=== PATIENT | female | born 1955 | race American Indian/Alaskan Native ===

== ENCOUNTER 2017-03-26 16:22 | Inpatient (IN) | payer OTHER ==
[2017-03-26 20:01] VITALS: BMI 44.6
--- NOTE | 2017-03-26 21:51 | CP.PCM.HP ---
History of Present Illness - History of Present Illness History of Present Illness: CC: S/P CVA HPI: 61 year old female admitted to acute rehab s/p CVA with residual R sided weakness, mild to mod dysarthria, PMH Hx CVA with residual L sided weakness, DM , HTN, HLD, Bipolar DO, was discharged from [facility] following acute CVA L stein radiata and basal ganglia in L pericallosal region. CT head and CTA were negative. Pt admitted for further rehab PT OT ST. HD STABLE NAD. ROS: per HPI, 12 systems reviewed and negative by me PMH: Hx CVA with residual L sided weakness, DM, HTN, HLD, Bipolar DO, PSH: DENIES FH: DENIES SH: TOBACCO: SINCE 14 7 cigarettes daily, denies ETOH AND IVDU MEDS: as below and reviewed ALLERGIES: NKDA EXAM: Vitals stable and reviewed GEN: WDWN, alert, cooperative HEENT: NCAT, PERRL, EOMI Neck: supple, no lymphadenopathy CARDIO: +S1S2, RRR, NO M/R/G LUNG: CTAB, NO W/R/R ABD: soft, NT, ND, no masses, no HSM EXT: no edema, pedal pulses Neuro: AAOx3, Strength equal, bilateral UE/LE Psych: normal mood, normal affect LABS REVIEWED in chart Allergies No Known Allergies Allergy (Verified 03/26/17 20:36) Height & Weight Height 5 ft 4.57 in Weight 264 lb 8.875 oz Start Date/Time Active Medications 03/26/17 20:40 Ondansetron [Zofran Inj] 4 mg IVP Q4 PRN 03/26/17 22:00 Atorvastatin [Lipitor] 40 mg PO HS Insulin Lispro [humALOG] See Protocol SC ACHS 03/27/17 07:30 MetFORMIN [glucOPHAGE] 1,000 mg PO ACBD SITagliptin [Januvia] 100 mg PO ACB 03/27/17 09:00 Aspirin [Ecotrin] 81 mg PO DAILY Cholecalciferol 400 Intl Units [Vitamin D 400 Intl Units Tab] 800 intlu PO DAILY Lisinopril [Zestril] 10 mg PO DAILY ASSESSMENT AND PLAN: 61 year old female admitted to acute rehab s/p CVA with residual R sided weakness, mild to mod dysarthria, PMH Hx CVA with residual L sided weakness, DM , HTN, HLD, Bipolar DO, was discharged from [facility] [place] following acute CVA - MRI + L stein radiata and basal ganglia in L pericallosal region. CT head and CTA were negative. Pt admitted for further rehab PT OT ST. HD STABLE NAD. S/P CVA with R sided weakness Hx CVA with L sided weakness MRI + L stein radiata and basal ganglia in L pericallosal region Dr. Cameron Neuro at [facility] [place] as well cont ASA 81 MG DAILY diet: heart healthy 2 gm NA mod carb mech soft solids, thin liquid with assist PT OT Physiatry Dr Arora DM cont metformin, januvia achs accuchecks low ISS HTN cont lisinopril HLD cont statin VTE ppx lovenox Present on Admission - Present on Admission Any Indicators Present on Admission: No Past Patient History - Past Medical History & Family History Past Medical History?: Yes - Past Social History Smoking Status: Heavy Smoker > 10 Cigarettes Daily - CARDIAC Hx Hypertension: Yes - PULMONARY Hx Respiratory Disorders: No - NEUROLOGICAL Hx Neurological Disorder: No - HEENT Hx HEENT Problems: No - RENAL Hx Chronic Kidney Disease: No - ENDOCRINE/METABOLIC Hx Diabetes Mellitus Type 2: Yes - HEMATOLOGICAL/ONCOLOGICAL Hx Blood Disorders: No - INTEGUMENTARY Hx Dermatological Problems: No - MUSCULOSKELETAL/RHEUMATOLOGICAL Hx Falls: Yes - GASTROINTESTINAL Hx Gastrointestinal Disorders: No - GENITOURINARY/GYNECOLOGICAL Hx Genitourinary Disorders: No - PSYCHIATRIC Hx Substance Use: No - SURGICAL HISTORY Hx Tubal Ligation: Yes (25 Yrs ago) - ANESTHESIA Hx Anesthesia: Yes Hx Anesthesia Reactions: No Hx Malignant Hyperthermia: No Meds Allergies/Adverse Reactions: Allergies Allergy/AdvReac Type Severity Reaction Status Date / Time No Known Allergies Allergy Verified 03/26/17 20:36 Results - Labs Labs: Laboratory Results - last 24 hr 03/26/17 21:05 POC Glucose (mg/dL) 134 H
[2017-03-26] MEDS: Insulin Lispro (humaLOG) 100 Units/ml Inj SC SCH (22:00)
[2017-03-27] MEDS ORDERED: Influenza Vaccine 18yr & older 0.5 ML/45 MCG SYR IM ONE ×2 (03:19→06:00)
[2017-03-27] MEDS ORDERED: Pneumococcal 23-Valent Vaccine IM ONE (06:00)
[2017-03-27] MEDS: Insulin Lispro (humaLOG) 100 Units/ml Inj SC SCH ×4 (06:30→21:55)
[2017-03-27] MEDS: Cholecalciferol 400 Intl Units Tab PO SCH (09:24)
[2017-03-27] MEDS: Enoxaparin 40 mg Syringe SC SCH (09:24)
[2017-03-27] MEDS: Pantoprazole 40 mg EC Tab PO SCH (10:28)
--- NOTE | 2017-03-27 20:15 | CP.PCM.CON ---
History of Present Illness - History of Present Illness History of Present Illness: 61 year patient admitted for acute inpatient rehab with diagnosis of CVA , problems with slurred speech and right sided weakness Review of Systems - Musculoskeletal Musculoskeletal: Abnormal Gait - Neurological Neurological: Abnormal Gait, Abnormal Speech, Lack of Coordination, Weakness Past Patient History - Past Medical History & Family History Past Medical History?: Yes - Past Social History Smoking Status: Light Smoker < 10 Cigarettes Daily - CARDIAC Hx Hypertension: Yes - PULMONARY Hx Respiratory Disorders: No - NEUROLOGICAL HX Cerebrovascular Accident: Yes - HEENT Hx HEENT Problems: No - RENAL Hx Chronic Kidney Disease: No - ENDOCRINE/METABOLIC Hx Diabetes Mellitus Type 2: Yes - HEMATOLOGICAL/ONCOLOGICAL Hx AIDS: No Hx Human Immunodeficiency Virus (HIV): No - INTEGUMENTARY Hx Dermatological Problems: No - MUSCULOSKELETAL/RHEUMATOLOGICAL Hx Falls: Yes - GASTROINTESTINAL Hx Gastrointestinal Disorders: No - GENITOURINARY/GYNECOLOGICAL Hx Genitourinary Disorders: No - PSYCHIATRIC Hx Bipolar Disorder: Yes - SURGICAL HISTORY Hx Tubal Ligation: Yes (25 Yrs ago) - ANESTHESIA Hx Anesthesia: Yes Hx Anesthesia Reactions: No Hx Malignant Hyperthermia: No Has any member of the family had a problem w/ anesthesia?: No Meds Allergies/Adverse Reactions: Allergies Allergy/AdvReac Type Severity Reaction Status Date / Time No Known Allergies Allergy Verified 03/26/17 20:36 - Medications Medications: Current Medications Acetaminophen (Tylenol 325mg Tab) 650 mg PO Q4 PRN PRN Reason: pain level 1-10 Aspirin (Ecotrin) 81 mg PO DAILY [facility] Last Admin: 03/27/17 09:23 Dose: 81 mg Atorvastatin Calcium (Lipitor) 40 mg PO HS [facility] Last Admin: 03/26/17 22:54 Dose: 40 mg Docusate Sodium (Colace) 100 mg PO BID [facility] Last Admin: 03/27/17 17:01 Dose: 100 mg Enoxaparin Sodium (Lovenox) 40 mg SC DAILY [facility] PRN Reason: Protocol Last Admin: 03/27/17 09:24 Dose: 40 mg Insulin Human Lispro (Humalog) 0 units SC ACHS [facility] PRN Reason: Protocol Last Admin: 03/27/17 17:00 Dose: 1 u Lisinopril (Zestril) 10 mg PO DAILY [facility] Last Admin: 03/27/17 09:23 Dose: 10 mg Metformin HCl (Glucophage) 1,000 mg PO ACBD [facility] Last Admin: 03/27/17 17:01 Dose: 1,000 mg Ondansetron HCl (Zofran Inj) 4 mg IVP Q4 PRN PRN Reason: Nausea/Vomiting Last Admin: 03/27/17 17:09 Dose: 4 mg Pantoprazole Sodium (Protonix Ec Tab) 40 mg PO DAILY [facility] Last Admin: 03/27/17 10:28 Dose: 40 mg Sitagliptin Phosphate (Januvia) 100 mg PO ACB [facility] Last Admin: 03/27/17 07:03 Dose: 100 mg Vitamin D (Vitamin D 400 Intl Units Tab) 800 intlu PO DAILY [facility] Last Admin: 03/27/17 09:24 Dose: 800 intlu Physical Exam - Head Exam Head Exam: ATRAUMATIC, NORMAL INSPECTION, NORMOCEPHALIC - Eye Exam Eye Exam: EOMI, Normal appearance Pupil Exam: NORMAL ACCOMODATION, PERRL - ENT Exam ENT Exam: Mucous Membranes Moist - Neck Exam Neck exam: Positive for: Normal Inspection - Respiratory Exam Respiratory Exam: NORMAL BREATHING PATTERN - Cardiovascular Exam Cardiovascular Exam: REGULAR RHYTHM - GI/Abdominal Exam GI & Abdominal Exam: Normal Bowel Sounds - Rectal Exam Rectal Exam: NORMAL INSPECTION - Exam External exam: NORMAL EXTERNAL EXAM - Extremities Exam Extremities exam: Positive for: normal inspection Additional comments: right sided weakness, and slurred speech - Psychiatric Exam Psychiatric exam: Normal Affect - Skin Skin Exam: Dry, Normal Color Results - Vital Signs Recent Vital Signs: Last Vital Signs Temp 97.7 F 03/27/17 10:00 Pulse 92 H 03/27/17 16:38 Resp 19 03/27/17 10:00 BP 140/79 03/27/17 10:00 Pulse Ox 95 03/27/17 10:00 - Labs Labs: Laboratory Results - last 24 hr 03/26/17 03/27/17 03/27/17 21:05 06:00 11:58 POC Glucose (mg/dL) 134 H 148 H 141 H 03/27/17 15:54 POC Glucose (mg/dL) 153 H Assessment & Plan - Assessment and Plan (Free Text) Assessment: patinet with problems of CVA, HTN and DM HIgh cholestrol. Plan for physical, occupational, rec and speech therapy rom, strengthening transfers and gait training
--- NOTE | 2017-03-27 20:23 | PCM.OPOC ---
Physiatry Overall Plan of Care - Overall Plan of Care Estimated Length of Stay in Weeks: 3 Rehab Impairment: Mobility, Gait, Cognition, Speech, Balance Etiologic Diagnosis: Cerebrovascular Accident Rehab/Medical Prognosis: Fair - Anticipated Interventions Physical Therapy:: Yes Occupational Therapy:: Yes Speech Therapy:: Yes Recreational Therapy:: Yes - Therapy Goals Bed Mobility: Independent Ambulation: Supervision Functional Positional Changes:: Independent - Functional Outcomes Functional Outcomes: good - Discharge Plan Identification of Barriers to Discharge: Home Situation Discharge Destination: Home
[2017-03-28] MEDS: Insulin Lispro (humaLOG) 100 Units/ml Inj SC SCH ×4 (06:39→22:00)
[2017-03-28] MEDS: Enoxaparin 40 mg Syringe SC SCH (09:31)
[2017-03-28] MEDS: Pantoprazole 40 mg EC Tab PO SCH (09:32)
[2017-03-28] MEDS: Cholecalciferol 400 Intl Units Tab PO SCH (09:32)
--- NOTE | 2017-03-28 10:55 | CP.PCM.PN ---
Subjective - Date & Time of Evaluation Date of Evaluation: 03/28/17 Time of Evaluation: 10:53 - Subjective Subjective: PATIENT SEEN AND EXAMINED FOR CVA DOING WELL TOLERATING PT WELL Objective - Vital Signs/Intake and Output Vital Signs (last 24 hours): Temp Pulse Resp BP Pulse Ox 97.8 F 83 22 153/82 H 98 03/28/17 08:31 03/28/17 09:33 03/28/17 08:31 03/28/17 09:33 03/28/17 08:31 - Medications Medications: Current Medications Acetaminophen (Tylenol 325mg Tab) 650 mg PO Q4 PRN PRN Reason: pain level 1-10 Aspirin (Ecotrin) 81 mg PO DAILY [facility] Last Admin: 03/28/17 09:32 Dose: 81 mg Atorvastatin Calcium (Lipitor) 40 mg PO HS [facility] Last Admin: 03/27/17 21:50 Dose: 40 mg Docusate Sodium (Colace) 100 mg PO BID [facility] Last Admin: 03/28/17 09:31 Dose: 100 mg Enoxaparin Sodium (Lovenox) 40 mg SC DAILY [facility] PRN Reason: Protocol Last Admin: 03/28/17 09:31 Dose: 40 mg Insulin Human Lispro (Humalog) 0 units SC [facility] PRN Reason: Protocol Last Admin: 03/28/17 06:39 Dose: Not Given Lisinopril (Zestril) 10 mg PO DAILY [facility] Last Admin: 03/28/17 09:33 Dose: 10 mg Metformin HCl (Glucophage) 1,000 mg PO ACBD [facility] Last Admin: 03/28/17 08:02 Dose: 1,000 mg Ondansetron HCl (Zofran Inj) 4 mg IVP Q4 PRN PRN Reason: Nausea/Vomiting Last Admin: 03/27/17 17:09 Dose: 4 mg Pantoprazole Sodium (Protonix Ec Tab) 40 mg PO DAILY [facility] Last Admin: 03/28/17 09:32 Dose: 40 mg Sitagliptin Phosphate (Januvia) 100 mg PO ACB [facility] Last Admin: 03/28/17 08:02 Dose: 100 mg Vitamin D (Vitamin D 400 Intl Units Tab) 800 intlu PO DAILY [facility] Last Admin: 03/28/17 09:32 Dose: 800 intlu - Constitutional Appears: Non-toxic, No Acute Distress, In Acute Distress - Head Exam Head Exam: ATRAUMATIC, NORMOCEPHALIC - Eye Exam Eye Exam: EOMI, Normal appearance, PERRL - ENT Exam ENT Exam: Mucous Membranes Dry, Normal Exam - Neck Exam Neck Exam: Normal Inspection - Respiratory Exam Respiratory Exam: Clear to Ausculation Bilateral, NORMAL BREATHING PATTERN - Cardiovascular Exam Cardiovascular Exam: RRR, +S1, +S2 - GI/Abdominal Exam GI & Abdominal Exam: Soft, Normal Bowel Sounds - Neurological Exam Neurological Exam: Alert, Awake - Psychiatric Exam Psychiatric exam: Normal Affect, Normal Mood - Skin Skin Exam: Dry, Normal Color Assessment and Plan - Assessment and Plan (Free Text) Plan: 61 year old female admitted to acute rehab s/p CVA with residual R sided weakness, mild to mod dysarthria, PMH Hx CVA with residual L sided weakness, DM , HTN, HLD, Bipolar DO, was discharged from [facility] [place] following acute CVA - MRI + L stein radiata and basal ganglia in L pericallosal region. CT head and CTA were negative. Pt admitted for further rehab PT OT ST. HD STABLE NAD. S/P CVA with R sided weakness Hx CVA with L sided weakness MRI + L stein radiata and basal ganglia in L pericallosal region Dr. Cameron Neuro at [facility] [place] as well cont ASA 81 MG DAILY diet: heart healthy 2 gm NA mod carb mech soft solids, thin liquid with assist PT OT ST Physiatry Dr Arora DM cont metformin, januvia achs accuchecks low ISS HTN cont lisinopril HLD cont statin VTE ppx lovenox
--- NOTE | 2017-03-28 15:30 | CP.PCM.PN ---
Subjective - Date & Time of Evaluation Date of Evaluation: 03/28/17 Time of Evaluation: 11:30 - Subjective Subjective: patient with no complaints of pain problems with slurred speech Objective - Vital Signs/Intake and Output Vital Signs (last 24 hours): Temp Pulse Resp BP Pulse Ox 97.8 F 83 22 153/82 H 98 03/28/17 08:31 03/28/17 09:33 03/28/17 08:31 03/28/17 09:33 03/28/17 08:31 - Medications Medications: Current Medications Acetaminophen (Tylenol 325mg Tab) 650 mg PO Q4 PRN PRN Reason: pain level 1-10 Last Admin: 03/28/17 14:33 Dose: 650 mg Aspirin (Ecotrin) 81 mg PO DAILY [facility] Last Admin: 03/28/17 09:32 Dose: 81 mg Atorvastatin Calcium (Lipitor) 40 mg PO HS [facility] Last Admin: 03/27/17 21:50 Dose: 40 mg Docusate Sodium (Colace) 100 mg PO BID [facility] Last Admin: 03/28/17 09:31 Dose: 100 mg Enoxaparin Sodium (Lovenox) 40 mg SC DAILY [facility] PRN Reason: Protocol Last Admin: 03/28/17 09:31 Dose: 40 mg Insulin Human Lispro (Humalog) 0 units SC [facility] PRN Reason: Protocol Last Admin: 03/28/17 11:30 Dose: Not Given Lisinopril (Zestril) 10 mg PO DAILY [facility] Last Admin: 03/28/17 09:33 Dose: 10 mg Metformin HCl (Glucophage) 1,000 mg PO ACBD [facility] Last Admin: 03/28/17 08:02 Dose: 1,000 mg Ondansetron HCl (Zofran Inj) 4 mg IVP Q4 PRN PRN Reason: Nausea/Vomiting Last Admin: 03/27/17 17:09 Dose: 4 mg Pantoprazole Sodium (Protonix Ec Tab) 40 mg PO DAILY [facility] Last Admin: 03/28/17 09:32 Dose: 40 mg Sitagliptin Phosphate (Januvia) 100 mg PO ACB [facility] Last Admin: 03/28/17 08:02 Dose: 100 mg Vitamin D (Vitamin D 400 Intl Units Tab) 800 intlu PO DAILY [facility] Last Admin: 03/28/17 09:32 Dose: 800 intlu - Head Exam Head Exam: ATRAUMATIC, NORMAL INSPECTION, NORMOCEPHALIC - Eye Exam Eye Exam: EOMI, Normal appearance Pupil Exam: NORMAL ACCOMODATION, PERRL - ENT Exam ENT Exam: Mucous Membranes Moist, Normal Exam - Neck Exam Neck Exam: Normal Inspection - Respiratory Exam Respiratory Exam: Clear to Ausculation Bilateral - Cardiovascular Exam Cardiovascular Exam: REGULAR RHYTHM - GI/Abdominal Exam GI & Abdominal Exam: Normal Bowel Sounds - Rectal Exam Rectal Exam: NORMAL INSPECTION - Exam External exam: NORMAL EXTERNAL EXAM - Extremities Exam Extremities Exam: Normal Inspection - Back Exam Back Exam: NORMAL INSPECTION - Neurological Exam Neurological Exam: Alert, Awake Neuro motor strength exam: Left Upper Extremity: 4, Right Upper Extremity: 2/1, Left Lower Extremity: 4, Right Lower Extremity: 2/1 - Psychiatric Exam Psychiatric exam: Normal Affect - Skin Skin Exam: Normal Color Assessment and Plan (1) CVA (cerebral vascular accident) Assessment & Plan: plan for physical, occupational and rec and speech therapy program rom strenghtening , transfers and gait training Status: Acute
[2017-03-29] MEDS: Insulin Lispro (humaLOG) 100 Units/ml Inj SC SCH ×4 (06:33→21:56)
[2017-03-29] MEDS: Pantoprazole 40 mg EC Tab PO SCH (09:42)
[2017-03-29] MEDS: Enoxaparin 40 mg Syringe SC SCH (09:43)
[2017-03-29] MEDS: Cholecalciferol 400 Intl Units Tab PO SCH (09:43)
[2017-03-30] MEDS: Insulin Lispro (humaLOG) 100 Units/ml Inj SC SCH ×4 (07:55→21:00)
[2017-03-30] MEDS: Cholecalciferol 400 Intl Units Tab PO SCH (08:59)
[2017-03-30] MEDS: Pantoprazole 40 mg EC Tab PO SCH (09:00)
[2017-03-30] MEDS: Enoxaparin 40 mg Syringe SC SCH (09:01)
[2017-03-30 09:29] LABS: HEMATOCRIT 44.5 % (34.0-47.0); MEAN CELL VOLUME 89.3 fl (81.0-99.0); MEAN CORPUSCULAR HEMOGLOBIN 29.7 pg (27.0-31.0); MEAN CORPUSCULAR HGB CONC 33.3 g/dL (33.0-37.0); RED CELL DISTRIBUTION WIDTH 13.4 % (11.5-14.5); WHITE BLOOD COUNT 7.6 K/uL (4.8-10.8)
[2017-03-30 10:00] LABS: BLOOD UREA NITROGEN 34 mg/dl (7-17); CALCIUM 11.4 mg/dL (8.4-10.2); CARBON DIOXIDE 28 mmol/L (22-30); CHLORIDE 102 mmol/L (98-107); GFR AFRICAN-AMERICAN > 60; GLUCOSE,RANDOM 107 mg/dL (65-105); POTASSIUM 4.3 MMOL/L (3.6-5.0); SODIUM 142 mmol/l (132-148)
--- NOTE | 2017-03-30 15:54 | CP.PCM.CON ---
History of Present Illness - History of Present Illness History of Present Illness: Pt is a 61 year old female admitted to [facility] and referred to the junior copywriter for evaluation. med history positive for a CVA. She medical record for complete medical history and medications. Social History: pt lives in Housing. She was very concerned with returning home and maintaining her apt. Pt has 4 children. She reported positive relationships with family members. Ed/Voc: pt raised in [place], did not complete HS, worked as a nurses aid. Psych: pt reported intervention years ago for depression. Depression reported at present with labile affect, negativity and pessimism. Pt negative for a history of alc/sub abuse. MSE: pt alert, oriented x2, relevant/coherent, no psychosis, affect constricted , mood depressed, no si no hi ideation. Dx: Depression r/o Recurrent Plan: Psychiatric Consultation continued Sup therapy Past Patient History - Past Medical History & Family History Past Medical History?: Yes - Past Social History Smoking Status: Light Smoker < 10 Cigarettes Daily - CARDIAC Hx Hypertension: Yes - PULMONARY Hx Respiratory Disorders: No - NEUROLOGICAL HX Cerebrovascular Accident: Yes - HEENT Hx HEENT Problems: No - RENAL Hx Chronic Kidney Disease: No - ENDOCRINE/METABOLIC Hx Diabetes Mellitus Type 2: Yes - HEMATOLOGICAL/ONCOLOGICAL Hx AIDS: No Hx Human Immunodeficiency Virus (HIV): No - INTEGUMENTARY Hx Dermatological Problems: No - MUSCULOSKELETAL/RHEUMATOLOGICAL Hx Falls: Yes - GASTROINTESTINAL Hx Gastrointestinal Disorders: No - GENITOURINARY/GYNECOLOGICAL Hx Genitourinary Disorders: No - PSYCHIATRIC Hx Bipolar Disorder: Yes - SURGICAL HISTORY Hx Tubal Ligation: Yes (25 Yrs ago) - ANESTHESIA Hx Anesthesia: Yes Hx Anesthesia Reactions: No Hx Malignant Hyperthermia: No Has any member of the family had a problem w/ anesthesia?: No Meds Allergies/Adverse Reactions: Allergies Allergy/AdvReac Type Severity Reaction Status Date / Time No Known Allergies Allergy Verified 03/26/17 20:36 - Medications Medications: Current Medications Acetaminophen (Tylenol 325mg Tab) 650 mg PO Q4 PRN PRN Reason: pain level 1-10 Last Admin: 03/29/17 00:38 Dose: 650 mg Aspirin (Ecotrin) 81 mg PO DAILY [facility] Last Admin: 03/30/17 09:01 Dose: 81 mg Atorvastatin Calcium (Lipitor) 40 mg PO HS [facility] Last Admin: 03/29/17 21:56 Dose: 40 mg Docusate Sodium (Colace) 100 mg PO BID [facility] Last Admin: 03/30/17 09:00 Dose: 100 mg Enoxaparin Sodium (Lovenox) 40 mg SC DAILY [facility] PRN Reason: Protocol Last Admin: 03/30/17 09:01 Dose: 40 mg Insulin Human Lispro (Humalog) 0 units SC ACHS [facility] PRN Reason: Protocol Last Admin: 03/30/17 11:35 Dose: Not Given Lisinopril (Zestril) 10 mg PO DAILY [facility] Last Admin: 03/30/17 09:01 Dose: 10 mg Metformin HCl (Glucophage) 1,000 mg PO ACBD [facility] Last Admin: 03/30/17 09:00 Dose: 1,000 mg Ondansetron HCl (Zofran Inj) 4 mg IVP Q4 PRN PRN Reason: Nausea/Vomiting Last Admin: 03/30/17 11:54 Dose: 4 mg Pantoprazole Sodium (Protonix Ec Tab) 40 mg PO DAILY [facility] Last Admin: 03/30/17 09:00 Dose: 40 mg Sitagliptin Phosphate (Januvia) 100 mg PO ACB [facility] Last Admin: 03/30/17 09:01 Dose: 100 mg Vitamin D (Vitamin D 400 Intl Units Tab) 800 intlu PO DAILY [facility] Last Admin: 03/30/17 08:59 Dose: 800 intlu Results - Vital Signs Recent Vital Signs: Last Vital Signs Temp 97.7 F 03/30/17 07:50 Pulse 79 03/30/17 07:50 Resp 20 03/30/17 07:50 BP 125/63 03/30/17 09:01 Pulse Ox 96 03/30/17 07:50 - Labs Result Diagrams: 03/30/17 09:00 03/30/17 09:00 Labs: Laboratory Results - last 24 hr 03/29/17 03/29/17 03/30/17 16:16 20:36 06:04 WBC RBC Hgb Hct MCV MCH MCHC RDW Plt Count Sodium Potassium Chloride Carbon Dioxide Anion Gap BUN Creatinine Est GFR ( Amer) Est GFR (Non-Af Amer) POC Glucose (mg/dL) 103 105 99 Random Glucose Calcium 03/30/17 03/30/17 03/30/17 09:00 09:00 11:00 WBC 7.6 RBC 4.99 Hgb 14.8 Hct 44.5 MCV 89.3 MCH 29.7 MCHC 33.3 RDW 13.4 Plt Count 169 Sodium 142 Potassium 4.3 Chloride 102 Carbon Dioxide 28 Anion Gap 16 BUN 34 H Creatinine 1.0 Est GFR ( Amer) > 60 Est GFR (Non-Af Amer) 56 POC Glucose (mg/dL) 129 H Random Glucose 107 H Calcium 11.4 H
[2017-03-31] MEDS: Insulin Lispro (humaLOG) 100 Units/ml Inj SC SCH ×3 (06:42→21:25)
[2017-03-31] MEDS: Enoxaparin 40 mg Syringe SC SCH (08:11)
[2017-03-31] MEDS: Cholecalciferol 400 Intl Units Tab PO SCH (08:12)
[2017-03-31] MEDS: Pantoprazole 40 mg EC Tab PO SCH (08:12)
--- NOTE | 2017-03-31 16:15 | CP.PCM.PN ---
Subjective - Date & Time of Evaluation Date of Evaluation: 03/31/17 Time of Evaluation: 11:40 - Subjective Subjective: Pt seen and examined. Complained of nausea and vomiting earlier but had relief after receiving Zofran. Also complained of sore throat. Objective - Vital Signs/Intake and Output Vital Signs (last 24 hours): Temp Pulse Resp BP Pulse Ox 97.0 F L 101 H 20 130/73 97 03/31/17 08:21 03/31/17 11:49 03/31/17 08:21 03/31/17 08:21 03/31/17 08:21 - Medications Medications: Current Medications Acetaminophen (Tylenol 325mg Tab) 650 mg PO Q4 PRN PRN Reason: pain level 1-10 Last Admin: 03/29/17 00:38 Dose: 650 mg Aspirin (Ecotrin) 81 mg PO DAILY [facility] Last Admin: 03/31/17 08:10 Dose: 81 mg Atorvastatin Calcium (Lipitor) 40 mg PO HS [facility] Last Admin: 03/30/17 22:07 Dose: Not Given Docusate Sodium (Colace) 100 mg PO BID [facility] Last Admin: 03/31/17 08:10 Dose: Not Given Enoxaparin Sodium (Lovenox) 40 mg SC DAILY [facility] PRN Reason: Protocol Last Admin: 03/31/17 08:11 Dose: 40 mg Insulin Human Lispro (Humalog) 0 units SC 0600,2100 [facility] PRN Reason: Protocol Lisinopril (Zestril) 10 mg PO DAILY [facility] Last Admin: 03/31/17 08:12 Dose: 10 mg Metformin HCl (Glucophage) 1,000 mg PO ACBD [facility] Last Admin: 03/31/17 08:10 Dose: 1,000 mg Ondansetron HCl (Zofran Inj) 4 mg IVP Q4 PRN PRN Reason: Nausea/Vomiting Last Admin: 03/31/17 10:49 Dose: 4 mg Pantoprazole Sodium (Protonix Ec Tab) 40 mg PO DAILY [facility] Last Admin: 03/31/17 08:12 Dose: 40 mg Sitagliptin Phosphate (Januvia) 100 mg PO ACB [facility] Last Admin: 03/31/17 08:10 Dose: 100 mg Vitamin D (Vitamin D 400 Intl Units Tab) 800 intlu PO DAILY [facility] Last Admin: 03/31/17 08:12 Dose: 800 intlu - Labs Labs: 03/30/17 09:00 03/30/17 09:00 - Constitutional Appears: No Acute Distress - Head Exam Head Exam: ATRAUMATIC - Eye Exam Eye Exam: absent: Scleral icterus - ENT Exam ENT Exam: Mucous Membranes Moist - Neck Exam Neck Exam: absent: Meningismus - Respiratory Exam Respiratory Exam: absent: Rhonchi, Wheezes, Respiratory Distress - Cardiovascular Exam Cardiovascular Exam: REGULAR RHYTHM, +S1, +S2 - GI/Abdominal Exam GI & Abdominal Exam: Soft. absent: Tenderness - Rectal Exam Rectal Exam: Deferred - Extremities Exam Extremities Exam: Full ROM - Neurological Exam Neurological Exam: Alert, Oriented x3 - Psychiatric Exam Psychiatric exam: Normal Affect - Skin Skin Exam: Dry, Intact Assessment and Plan - Assessment and Plan (Free Text) Assessment: 61 yo female with history of DM2, HTN, HLD and Bipolar DO was admitted in [facility] because of Acute CVA with right sided weakness involving the left [place] Radiata and Basal Ganglia. She was transferred to [facility] and admitted in acute rehab for further rehab and therapy. 1. S/P CVA with Right Sided Weakness continue ASA 81mg PO daily continue PT/OT/ST 2. DM2 BS controlled continue Metformin and Januvia 3. HTN BP stable continue Lisinopril 4. HLD continue Lipitor 40mg PO HS
[2017-03-31] MEDS: Alum-Mag Hydrox-Simethicone Susp (30 mL) PO PRN (21:59)
[2017-04-01] MEDS: Insulin Lispro (humaLOG) 100 Units/ml Inj SC SCH ×2 (06:37→21:28)
[2017-04-01] MEDS: Enoxaparin 40 mg Syringe SC SCH (08:53)
[2017-04-01] MEDS: Cholecalciferol 400 Intl Units Tab PO SCH (08:54)
[2017-04-01] MEDS: Pantoprazole 40 mg EC Tab PO SCH (08:54)
--- NOTE | 2017-04-01 15:32 | CP.PCM.CON ---
History of Present Illness - History of Present Illness History of Present Illness: 61 year old female admitted to acute rehab s/p CVA with residual R sided weakness, mild to mod dysarthria, PMH Hx CVA with residual L sided weakness, DM , HTN, HLD, Bipolar DO, was discharged from [facility] [place] following acute CVA L stein radiata and basal ganglia in L pericallosal region. CT head and CTA were negative. Pt admitted for further rehab patient on evaluation appears sad reported feeling down with poor sleep and appetite denied manic or psychotic symptoms Past Patient History - Past Medical History & Family History Past Medical History?: Yes - Past Social History Smoking Status: Light Smoker < 10 Cigarettes Daily - CARDIAC Hx Hypertension: Yes - PULMONARY Hx Respiratory Disorders: No - NEUROLOGICAL HX Cerebrovascular Accident: Yes - HEENT Hx HEENT Problems: No - RENAL Hx Chronic Kidney Disease: No - ENDOCRINE/METABOLIC Hx Diabetes Mellitus Type 2: Yes - HEMATOLOGICAL/ONCOLOGICAL Hx AIDS: No Hx Human Immunodeficiency Virus (HIV): No - INTEGUMENTARY Hx Dermatological Problems: No - MUSCULOSKELETAL/RHEUMATOLOGICAL Hx Falls: Yes - GASTROINTESTINAL Hx Gastrointestinal Disorders: No - GENITOURINARY/GYNECOLOGICAL Hx Genitourinary Disorders: No - PSYCHIATRIC Hx Bipolar Disorder: Yes - SURGICAL HISTORY Hx Tubal Ligation: Yes (25 Yrs ago) - ANESTHESIA Hx Anesthesia: Yes Hx Anesthesia Reactions: No Hx Malignant Hyperthermia: No Has any member of the family had a problem w/ anesthesia?: No Meds Allergies/Adverse Reactions: Allergies Allergy/AdvReac Type Severity Reaction Status Date / Time No Known Allergies Allergy Verified 03/26/17 20:36 - Medications Medications: Current Medications Acetaminophen (Tylenol 325mg Tab) 650 mg PO Q4 PRN PRN Reason: pain level 1-10 Last Admin: 03/29/17 00:38 Dose: 650 mg Al Hydrox/Mg Hydrox/Simethicone (Maalox Plus 30 Ml) 30 ml PO Q6 PRN PRN Reason: Indigestion / Heartburn Last Admin: 03/31/17 21:59 Dose: 30 ml Aspirin (Ecotrin) 81 mg PO DAILY [facility] Last Admin: 04/01/17 08:54 Dose: 81 mg Atorvastatin Calcium (Lipitor) 40 mg PO HS [facility] Last Admin: 03/31/17 21:37 Dose: 40 mg Docusate Sodium (Colace) 100 mg PO BID [facility] Last Admin: 04/01/17 08:52 Dose: 100 mg Enoxaparin Sodium (Lovenox) 40 mg SC DAILY [facility] PRN Reason: Protocol Insulin Human Lispro (Humalog) 0 units SC 0600,2100 [facility] PRN Reason: Protocol Last Admin: 04/01/17 06:37 Dose: Not Given Lisinopril (Zestril) 10 mg PO DAILY [facility] Last Admin: 04/01/17 08:52 Dose: 10 mg Metformin HCl (Glucophage) 1,000 mg PO ACBD [facility] Last Admin: 04/01/17 08:05 Dose: 1,000 mg Ondansetron HCl (Zofran Inj) 4 mg IVP Q4 PRN PRN Reason: Nausea/Vomiting Last Admin: 03/31/17 10:49 Dose: 4 mg Pantoprazole Sodium (Protonix Ec Tab) 40 mg PO DAILY [facility] Last Admin: 04/01/17 08:54 Dose: 40 mg Sitagliptin Phosphate (Januvia) 100 mg PO ACB [facility] Last Admin: 04/01/17 08:05 Dose: 100 mg Vitamin D (Vitamin D 400 Intl Units Tab) 800 intlu PO DAILY [facility] Last Admin: 04/01/17 08:54 Dose: 800 intlu Physical Exam - Psychiatric Exam Psychiatric exam: Depressed Additional comments: patient on evaluation with partial eye contact, speech soft and underproductive and slurred mood reported down affect constricted and sad thought form concrete denied any current suicidal or homicidal ideations denied perceptual disturbances alert awake oriented to person and place fair insight and judgment Results - Vital Signs Recent Vital Signs: Last Vital Signs Temp 97.6 F 04/01/17 08:05 Pulse 88 04/01/17 08:52 Resp 20 04/01/17 08:05 BP 142/61 04/01/17 08:52 Pulse Ox 96 04/01/17 08:05 - Labs Result Diagrams: 03/30/17 09:00 03/30/17 09:00 Labs: Laboratory Results - last 24 hr 03/31/17 04/01/17 20:24 05:58 POC Glucose (mg/dL) 120 H 125 H Assessment & Plan - Assessment and Plan (Free Text) Assessment: adjustment disorder with depressed mood patient would benifit from antidepressant recommend to start 5mg of lexaprostart
--- NOTE | 2017-04-01 15:58 | CP.PCM.PN ---
Subjective - Date & Time of Evaluation Date of Evaluation: 04/01/17 Time of Evaluation: 14:00 - Subjective Subjective: no acute complaints at present Objective - Vital Signs/Intake and Output Vital Signs (last 24 hours): Temp Pulse Resp BP Pulse Ox 97.6 F 88 20 142/61 96 04/01/17 08:05 04/01/17 08:52 04/01/17 08:05 04/01/17 08:52 04/01/17 08:05 - Medications Medications: Current Medications Acetaminophen (Tylenol 325mg Tab) 650 mg PO Q4 PRN PRN Reason: pain level 1-10 Last Admin: 03/29/17 00:38 Dose: 650 mg Al Hydrox/Mg Hydrox/Simethicone (Maalox Plus 30 Ml) 30 ml PO Q6 PRN PRN Reason: Indigestion / Heartburn Last Admin: 03/31/17 21:59 Dose: 30 ml Aspirin (Ecotrin) 81 mg PO DAILY [facility] Last Admin: 04/01/17 08:54 Dose: 81 mg Atorvastatin Calcium (Lipitor) 40 mg PO HS [facility] Last Admin: 03/31/17 21:37 Dose: 40 mg Docusate Sodium (Colace) 100 mg PO BID [facility] Last Admin: 04/01/17 08:52 Dose: 100 mg Enoxaparin Sodium (Lovenox) 40 mg SC DAILY [facility] PRN Reason: Protocol Insulin Human Lispro (Humalog) 0 units SC 0600,2100 [facility] PRN Reason: Protocol Last Admin: 04/01/17 06:37 Dose: Not Given Lisinopril (Zestril) 10 mg PO DAILY [facility] Last Admin: 04/01/17 08:52 Dose: 10 mg Metformin HCl (Glucophage) 1,000 mg PO ACBD [facility] Last Admin: 04/01/17 08:05 Dose: 1,000 mg Ondansetron HCl (Zofran Inj) 4 mg IVP Q4 PRN PRN Reason: Nausea/Vomiting Last Admin: 03/31/17 10:49 Dose: 4 mg Pantoprazole Sodium (Protonix Ec Tab) 40 mg PO DAILY [facility] Last Admin: 04/01/17 08:54 Dose: 40 mg Sitagliptin Phosphate (Januvia) 100 mg PO ACB [facility] Last Admin: 04/01/17 08:05 Dose: 100 mg Vitamin D (Vitamin D 400 Intl Units Tab) 800 intlu PO DAILY [facility] Last Admin: 04/01/17 08:54 Dose: 800 intlu - Labs Labs: 03/30/17 09:00 03/30/17 09:00 - Head Exam Head Exam: ATRAUMATIC, NORMAL INSPECTION, NORMOCEPHALIC - Eye Exam Eye Exam: EOMI, Normal appearance, PERRL Pupil Exam: NORMAL ACCOMODATION - ENT Exam ENT Exam: Mucous Membranes Moist, Normal Exam - Neck Exam Neck Exam: Normal Inspection - Respiratory Exam Respiratory Exam: NORMAL BREATHING PATTERN - Cardiovascular Exam Cardiovascular Exam: REGULAR RHYTHM - GI/Abdominal Exam GI & Abdominal Exam: Normal Bowel Sounds - Rectal Exam Rectal Exam: NORMAL INSPECTION - Exam External exam: NORMAL EXTERNAL EXAM Speculum exam: NORMAL SPECULUM EXAM - Extremities Exam Extremities Exam: Normal Capillary Refill, Normal Inspection - Back Exam Back Exam: NORMAL INSPECTION - Neurological Exam Neurological Exam: Alert, Awake Neuro motor strength exam: Left Upper Extremity: 3, Right Upper Extremity: 3, Left Lower Extremity: 3, Right Lower Extremity: 3 - Psychiatric Exam Psychiatric exam: Normal Affect, Normal Mood - Skin Skin Exam: Dry, Intact Assessment and Plan (1) CVA (cerebral vascular accident) Assessment & Plan: plan for physical, occupational, rec, speech therapy for Range of motion, strenghthening , gait training Status: Acute
--- NOTE | 2017-04-01 16:07 | CP.PCM.PN ---
Subjective - Date & Time of Evaluation Date of Evaluation: 03/30/17 Time of Evaluation: 15:00 - Subjective Subjective: no acute complaints at present, Objective - Vital Signs/Intake and Output Vital Signs (last 24 hours): Temp Pulse Resp BP Pulse Ox 97.6 F 88 20 142/61 96 04/01/17 08:05 04/01/17 08:52 04/01/17 08:05 04/01/17 08:52 04/01/17 08:05 - Medications Medications: Current Medications Acetaminophen (Tylenol 325mg Tab) 650 mg PO Q4 PRN PRN Reason: pain level 1-10 Last Admin: 03/29/17 00:38 Dose: 650 mg Al Hydrox/Mg Hydrox/Simethicone (Maalox Plus 30 Ml) 30 ml PO Q6 PRN PRN Reason: Indigestion / Heartburn Last Admin: 03/31/17 21:59 Dose: 30 ml Aspirin (Ecotrin) 81 mg PO DAILY [facility] Last Admin: 04/01/17 08:54 Dose: 81 mg Atorvastatin Calcium (Lipitor) 40 mg PO HS [facility] Last Admin: 03/31/17 21:37 Dose: 40 mg Docusate Sodium (Colace) 100 mg PO BID [facility] Last Admin: 04/01/17 08:52 Dose: 100 mg Enoxaparin Sodium (Lovenox) 40 mg SC DAILY [facility] PRN Reason: Protocol Insulin Human Lispro (Humalog) 0 units SC 0600,2100 [facility] PRN Reason: Protocol Last Admin: 04/01/17 06:37 Dose: Not Given Lisinopril (Zestril) 10 mg PO DAILY [facility] Last Admin: 04/01/17 08:52 Dose: 10 mg Metformin HCl (Glucophage) 1,000 mg PO ACBD [facility] Last Admin: 04/01/17 08:05 Dose: 1,000 mg Ondansetron HCl (Zofran Inj) 4 mg IVP Q4 PRN PRN Reason: Nausea/Vomiting Last Admin: 03/31/17 10:49 Dose: 4 mg Pantoprazole Sodium (Protonix Ec Tab) 40 mg PO DAILY [facility] Last Admin: 04/01/17 08:54 Dose: 40 mg Sitagliptin Phosphate (Januvia) 100 mg PO ACB [facility] Last Admin: 04/01/17 08:05 Dose: 100 mg Vitamin D (Vitamin D 400 Intl Units Tab) 800 intlu PO DAILY [facility] Last Admin: 04/01/17 08:54 Dose: 800 intlu - Labs Labs: 03/30/17 09:00 03/30/17 09:00 - Head Exam Head Exam: ATRAUMATIC, NORMAL INSPECTION, NORMOCEPHALIC - Eye Exam Eye Exam: EOMI, Normal appearance, PERRL Pupil Exam: NORMAL ACCOMODATION - ENT Exam ENT Exam: Mucous Membranes Moist, Normal Exam - Neck Exam Neck Exam: Normal Inspection - Respiratory Exam Respiratory Exam: NORMAL BREATHING PATTERN - Cardiovascular Exam Cardiovascular Exam: REGULAR RHYTHM - GI/Abdominal Exam GI & Abdominal Exam: Normal Bowel Sounds - Rectal Exam Rectal Exam: NORMAL INSPECTION - Exam External exam: NORMAL EXTERNAL EXAM - Extremities Exam Extremities Exam: Normal Capillary Refill, Normal Inspection - Back Exam Back Exam: NORMAL INSPECTION - Neurological Exam Neurological Exam: Alert, Awake Neuro motor strength exam: Left Upper Extremity: 3, Right Upper Extremity: 3, Left Lower Extremity: 3, Right Lower Extremity: 3 - Psychiatric Exam Psychiatric exam: Normal Affect, Normal Mood - Skin Skin Exam: Dry, Intact Assessment and Plan (1) CVA (cerebral vascular accident) Assessment & Plan: plan for pt, ot , rec therapt St therapy monitor skin, bowel and bladder Status: Acute
[2017-04-02] MEDS ORDERED: Naphazoline/Pheniramine Opht SOLN OU PRN (01:21)
[2017-04-02 05:58] LABS: HEMATOCRIT 46.3 % (34.0-47.0); MEAN CELL VOLUME 90.4 fl (81.0-99.0); MEAN CORPUSCULAR HEMOGLOBIN 29.4 pg (27.0-31.0); MEAN CORPUSCULAR HGB CONC 32.5 g/dL (33.0-37.0); RED CELL DISTRIBUTION WIDTH 13.3 % (11.5-14.5); WHITE BLOOD COUNT 7.9 K/uL (4.8-10.8)
[2017-04-02 06:27] LABS: CALCIUM 12.9 mg/dL (8.4-10.2)
[2017-04-02 06:33] LABS: POTASSIUM 5.2 MMOL/L (3.6-5.0)
[2017-04-02] MEDS: Insulin Lispro (humaLOG) 100 Units/ml Inj SC SCH ×2 (07:00→21:19)
[2017-04-02] MEDS: Pantoprazole 40 mg EC Tab PO SCH (09:34)
[2017-04-02] MEDS: Cholecalciferol 400 Intl Units Tab PO SCH (09:35)
[2017-04-02] MEDS: Enoxaparin 40 mg Syringe SC SCH (09:35)
[2017-04-02] MEDS ORDERED: Sod Polystyrene Sulf 15 gm/60 ml Susp PO ONE (11:50)
--- NOTE | 2017-04-02 12:11 | PSY.TMCNF ---
Nursing - Vital Signs Vital Signs (Last 8 hours): Vital Signs 04/02/17 04/02/17 08:30 12:01 Temperature 98.8 F 98.8 F Pulse Rate 69 69 Respiratory 20 20 Rate Blood Pressure 100/60 100/60 O2 Sat by Pulse 95 Oximetry Pain: 0 - Precautions: Precautions: Fall Prevention, Aspiration - Medications/Other Issues Comment: Transferred back to bed yesterday without assistance. BUN/Crea/K elavted MD aware with orders. - Consults Comment: Dr. Walker, Psych consult done as well, - Toileting Toileting: Maximal Assistance - Bladder Management Bladder Pattern: Normal Voiding Method: Bedside Commode Bladder Management: Supervision Frequency of Accidents: 0 - Bowel Management Bowel Pattern: Normal, Constipated Bowel Management: Supervision Frequency of Accidents: 0 - Transfers Transfers: Maximal Assistance - ADL's ADL's: Maximal Assistance - Patient/Family Teaching Comments: Care post CVA and safety precautions - Goals/Time Frame Comments: Per multidisciplinary care plans and goals - Provider Provider: Marilyn ROTHN RN CRRN Physical Therapy - Bed Mobility Bed Mobility: Modified Independent - Transfers Wheelchair to Mat: Minimal Assistance Sit to Stand: Verbal Cues, Contact Guard, Minimal Assistance Comment: using RW. pt. requires max VCs to participate - Ambulation Level of Assistance: Verbal Cues, Contact Guard Distance (ft.): 40 Assistive Devices: Rolling Walker Orthoses: max vc/tc and encouragement to complete tasks. Pt self limits secondary to c/o fatigue. unsteady, flexed posture, narrow MABEL, difficulty remaining inside RW. Pt. tends to have decreased foot clearance R LE when fatigues but starts out with heel strike and fot clearance - Stair Negotiation Stairs: Level of Assistance: Not Tested - Standing Balance Static Stand: Contact Guard Assist Dynamic Stand: Contact Guard Assist, Minimal Assistance Comment: supported with RW - Pain Comment: Pt with intermittent complaints of back pain - Insight/Carryover Insight/Carryover: Fair - Patient/Family Education Comment: role of OT/rehab, hemiplegic compensatory strategies, AE/DME, safety and fall prevention, stroke recovery - Assessment/Plan Assessment: Pt with decreased insight to deficits and the affect on her daily function, pt is preoccupied with the thought of "signing papers" for her new apartment with her disease case manager rn. Pt requires continued intensive therapy to increase RUE function and maximize independence with ADLs and functional mobility - Goals Timeframe: 1 week Goals: MIN A with toileting. MIN A toilet txfer. MOD A with LE dressing. MIN A with UE dressing - Provider Therapist: Carli Light PT License Number: [id number] Occupational Therapy - Arousal/Attention/Orientation Level of Consciousness: Awake, Alert Patient Orientation: Person, Place, Time - ADL/IADL Self Feeding: Supervision, Verbal Cues, Set-up Help Grooming: Verbal Cues, Set-up Help, Minimal Assistance Dressing-Upper Extremity: Verbal Cues, Set-up Help, Maximum Assistance Dressing-Lower Extremity: Verbal Cues, Set-up Help, Dependent - Sitting Balance Static Sitting: Supervision Dynamic Sitting: Minimal Assistance - Transfers Wheelchair to Bed Transfers: Minimal Assistance Toilet Transfers: Moderate Assistance - Wheelchair Management Level of Assistance: Dependent - Upper Extremity Status Right Upper Extremity Comment: PROM in all joints/planes is WFL, AROM is impaired in all joints.digits: pt is able to actively complete gross grasp and release, however unable to actively complete thumb opposition to all fingers. shoulder flexion active approx 45*. Elbow range 120*-20* Left Upper Extremity Comment: ROM WFL, generalized weakness - Pain Comment: Pt with intermittent complaints of back pain - Insight/Carryover Insight/Carryover: Fair - Patient/Family Education Comment: role of OT/rehab, hemiplegic compensatory strategies, AE/DME, safety and fall prevention, stroke recovery - Assessment/Plan Assessment: Pt with decreased insight to deficits and the affect on her daily function, pt is preoccupied with the thought of "signing papers" for her new apartment with her disease case manager rn. Pt requires continued intensive therapy to increase RUE function and maximize independence with ADLs and functional mobility - Goals Timeframe: 1 week Goals: MIN A with toileting. MIN A toilet txfer. MOD A with LE dressing. MIN A with UE dressing - Provider Therapist: Ro Brower License Number: [id number] Speech Therapy - Consult Information Patient on Program: Yes Medical Diagnosis: CVA Treatment Diagnosis: -moderate dysarthria. -moderate cognitive deficits - Assessment Expressive Language Impairment: Mild Receptive Language Impairment: Mild Problem Solving Impairment: Moderate Memory Impairment: Moderate Speech/Articulation Impairment: Moderate - Plan Assessment: Pt with decreased insight to deficits and the affect on her daily function, pt is preoccupied with the thought of "signing papers" for her new apartment with her disease case manager rn. Pt requires continued intensive therapy to increase RUE function and maximize independence with ADLs and functional mobility - Provider Therapist: Thais Farooq License Number: [id number] Recreational Therapy - Participation Participation: Participates in Individual and/or Group Sessions - Attendance Attendance: Daily - Activities Leisure Activities: Cards and Games - Socialization Level of Socialization: Initiates/interacts freely with care givers and peer - Diversional Time Diversional Time: television, likes to play cards - Assessment Assessment/Plan: Pt with decreased insight to deficits and the affect on her daily function, pt is preoccupied with the thought of "signing papers" for her new apartment with her disease case manager rn. Pt requires continued intensive therapy to increase RUE function and maximize independence with ADLs and functional mobility - Provider Therapist: Leonie Wood, PH[employer]SEM[employer]ER #[id number] Nutrition - Current Diet Current Diet/ Supplement/ Feedings: advanced bite size thin liquids moderaet consistent. heart healthy: 2 gram Na diet - Appetite Percent Meal Consumed: 25-49% - Comments Comments: Care post CVA and safety precautions - Assessment/Goals/Time Frame Assessment/Goals/Time Frame: Transferred back to bed yesterday without assistance. PEPE/Tracy/Anamaria rousseau MD aware with orders. - Provider Provider: Acacia Mejia RD Case Management - Discharge Plan Discharge Plan: Home with significant other/family Rehabilitation Plan - Treatment Plan Treatment Plan: Physical Therapy, Occupational Therapy, Speech, Dietary, Patient /Family Education - Recommendation Recommendation: Physical Therapy, Occupational Therapy, Speech, Dietary, Patient /Family Education - Discharge Plan Discharge to: Home (04/14)
[2017-04-02] MEDS: Sodium Chloride 0.9% 1,000 ML IV SCH (12:41)
--- NOTE | 2017-04-02 17:26 | CP.PCM.PN ---
Subjective - Date & Time of Evaluation Date of Evaluation: 04/02/17 Time of Evaluation: 14:40 - Subjective Subjective: Pt seen and examined. Complained of feeling tired while sitting on a chair. Objective - Vital Signs/Intake and Output Vital Signs (last 24 hours): Temp Pulse Resp BP Pulse Ox 98.8 F 69 20 100/60 95 04/02/17 12:01 04/02/17 12:01 04/02/17 12:01 04/02/17 12:01 04/02/17 08:30 - Medications Medications: Current Medications Acetaminophen (Tylenol 325mg Tab) 650 mg PO Q4 PRN PRN Reason: pain level 1-10 Last Admin: 03/29/17 00:38 Dose: 650 mg Al Hydrox/Mg Hydrox/Simethicone (Maalox Plus 30 Ml) 30 ml PO Q6 PRN PRN Reason: Indigestion / Heartburn Last Admin: 03/31/17 21:59 Dose: 30 ml Aspirin (Ecotrin) 81 mg PO DAILY [facility] Last Admin: 04/02/17 09:34 Dose: 81 mg Atorvastatin Calcium (Lipitor) 40 mg PO HS [facility] Last Admin: 04/01/17 21:28 Dose: 40 mg Docusate Sodium (Colace) 100 mg PO BID [facility] Last Admin: 04/02/17 09:35 Dose: 100 mg Enoxaparin Sodium (Lovenox) 40 mg SC DAILY [facility] PRN Reason: Protocol Last Admin: 04/02/17 09:35 Dose: 40 mg Escitalopram Oxalate (Lexapro) 5 mg PO DAILY [facility] Last Admin: 04/02/17 09:34 Dose: 5 mg Sodium Chloride (Sodium Chloride 0.9%) 1,000 mls @ 100 mls/hr IV .Q10H [facility] Stop: 04/03/17 10:50 Last Admin: 04/02/17 12:41 Dose: 100 mls/hr Insulin Human Lispro (Humalog) 0 units SC 0600,2100 [facility] PRN Reason: Protocol Last Admin: 04/02/17 07:00 Dose: Not Given Naphazoline HCl/Pheniramine Maleate (Naphcon-A Opht) 1 drop OU QID PRN PRN Reason: Dry eyes Last Admin: 04/02/17 01:42 Dose: 1 drop Ondansetron HCl (Zofran Inj) 4 mg IVP Q4 PRN PRN Reason: Nausea/Vomiting Last Admin: 04/02/17 00:35 Dose: 4 mg Pantoprazole Sodium (Protonix Ec Tab) 40 mg PO DAILY [facility] Last Admin: 04/02/17 09:34 Dose: 40 mg Sitagliptin Phosphate (Januvia) 100 mg PO ACB [facility] Last Admin: 04/02/17 07:45 Dose: 100 mg Vitamin D (Vitamin D 400 Intl Units Tab) 800 intlu PO DAILY [facility] Last Admin: 04/02/17 09:35 Dose: 800 intlu - Labs Labs: 04/02/17 05:40 04/02/17 05:40 - Constitutional Appears: No Acute Distress - Head Exam Head Exam: ATRAUMATIC - Eye Exam Eye Exam: absent: Scleral icterus - ENT Exam ENT Exam: Mucous Membranes Moist - Neck Exam Neck Exam: absent: Meningismus - Respiratory Exam Respiratory Exam: absent: Rhonchi, Wheezes, Respiratory Distress - Cardiovascular Exam Cardiovascular Exam: REGULAR RHYTHM, +S1, +S2 - GI/Abdominal Exam GI & Abdominal Exam: Soft. absent: Tenderness - Rectal Exam Rectal Exam: Deferred - Neurological Exam Neurological Exam: Alert - Psychiatric Exam Psychiatric exam: Depressed, Flat Affect - Skin Skin Exam: Dry, Intact Assessment and Plan - Assessment and Plan (Free Text) Assessment: 61 yo female with history of DM2, HTN, HLD and Bipolar DO was admitted in [facility] because of Acute CVA with right sided weakness involving the left [place] Radiata and Basal Ganglia. She was transferred to [facility] and admitted in acute rehab for further rehab and therapy. 1. S/P CVA with Right Sided Weakness continue ASA, Lipitor continue PT/OT/ST 2. DM2 BS controlled continue Januvia DC Metformin 3. HTN BP stable hold Lisinopril because of azotemia 4. HLD continue Lipitor 40mg PO HS 5. Renal Insufficiency renal function deteriorating probably secondary to dehydration DC Metformin and Lisinopril start IV hydration with NSS 100cc/hr repeat BMP in am
--- NOTE | 2017-04-02 19:51 | PN ---
PHYSIATRY PROGRESS NOTE SUBJECTIVE: The patient is feeling fine, no acute complaints at present. OBJECTIVE: VITAL SIGNS: Stable. NECK: Supple. CHEST: Symmetrical. HEART: Sounds S1 and S2. ABDOMEN: Area is benign. EXTREMITIES: No clubbing, cyanosis, or edema. IMPRESSION AND PLAN: Acute cerebrovascular accident, right hemiparesis, status post slurred speech, diabetes, hypertension, hypercholesterolemia. Status post team conference. Discussed discharge planning with the patient. Tentative discharge is on 04/14/2017. Flavio MD Denise
[2017-04-03] MEDS: Sodium Chloride 0.9% 1,000 ML IV SCH ×3 (01:07→16:49)
[2017-04-03 06:10] LABS: CALCIUM 11.6 mg/dL (8.4-10.2); POTASSIUM 4.5 MMOL/L (3.6-5.0)
[2017-04-03] MEDS: Insulin Lispro (humaLOG) 100 Units/ml Inj SC SCH ×2 (07:00→21:29)
[2017-04-03] MEDS: Cholecalciferol 400 Intl Units Tab PO SCH (08:58)
[2017-04-03] MEDS: Pantoprazole 40 mg EC Tab PO SCH (08:58)
[2017-04-03] MEDS: Enoxaparin 40 mg Syringe SC SCH (08:59)
[2017-04-04] MEDS: Sodium Chloride 0.9% 1,000 ML IV SCH ×3 (00:54→23:23)
[2017-04-04] MEDS: Insulin Lispro (humaLOG) 100 Units/ml Inj SC SCH ×2 (07:47→21:31)
[2017-04-04] MEDS: Enoxaparin 40 mg Syringe SC SCH (09:23)
[2017-04-04] MEDS: Pantoprazole 40 mg EC Tab PO SCH ×2 (09:23→09:29)
[2017-04-04] MEDS: Cholecalciferol 400 Intl Units Tab PO SCH (09:24)
--- NOTE | 2017-04-04 10:14 | CP.PCM.PN ---
Subjective - Date & Time of Evaluation Date of Evaluation: 04/04/17 Time of Evaluation: 10:13 - Subjective Subjective: doing well seen for cva no complaints tolerating PT well Objective - Vital Signs/Intake and Output Vital Signs (last 24 hours): Temp Pulse Resp BP Pulse Ox 97.9 F 71 18 124/88 100 04/04/17 09:19 04/04/17 09:19 04/04/17 09:19 04/04/17 09:19 04/04/17 09:19 Intake and Output: 04/04/17 04/04/17 06:59 18:59 Intake Total 850 Output Total 450 Balance 400 - Medications Medications: Current Medications Acetaminophen (Tylenol 325mg Tab) 650 mg PO Q4 PRN PRN Reason: pain level 1-10 Last Admin: 03/29/17 00:38 Dose: 650 mg Al Hydrox/Mg Hydrox/Simethicone (Maalox Plus 30 Ml) 30 ml PO Q6 PRN PRN Reason: Indigestion / Heartburn Last Admin: 03/31/17 21:59 Dose: 30 ml Aspirin (Ecotrin) 81 mg PO DAILY [facility] Last Admin: 04/04/17 09:22 Dose: 81 mg Atorvastatin Calcium (Lipitor) 40 mg PO HS [facility] Last Admin: 04/03/17 21:30 Dose: Not Given Docusate Sodium (Colace) 100 mg PO BID [facility] Last Admin: 04/04/17 09:34 Dose: Not Given Enoxaparin Sodium (Lovenox) 40 mg SC DAILY [facility] PRN Reason: Protocol Last Admin: 04/04/17 09:23 Dose: 40 mg Escitalopram Oxalate (Lexapro) 5 mg PO DAILY [facility] Last Admin: 04/04/17 09:22 Dose: 5 mg Sodium Chloride (Sodium Chloride 0.9%) 1,000 mls @ 100 mls/hr IV .Q10H [facility] Stop: 04/04/17 14:06 Last Admin: 04/04/17 00:54 Dose: 100 mls/hr Insulin Human Lispro (Humalog) 0 units SC 0600,2100 [facility] PRN Reason: Protocol Last Admin: 04/04/17 07:47 Dose: Not Given Naphazoline HCl/Pheniramine Maleate (Naphcon-A Opht) 1 drop OU QID PRN PRN Reason: Dry eyes Last Admin: 04/02/17 01:42 Dose: 1 drop Ondansetron HCl (Zofran Inj) 4 mg IVP Q4 PRN PRN Reason: Nausea/Vomiting Last Admin: 04/02/17 00:35 Dose: 4 mg Pantoprazole Sodium (Protonix Ec Tab) 40 mg PO DAILY [facility] Last Admin: 04/04/17 09:29 Dose: Not Given Sitagliptin Phosphate (Januvia) 100 mg PO ACB [facility] Last Admin: 04/04/17 09:23 Dose: 100 mg Vitamin D (Vitamin D 400 Intl Units Tab) 800 intlu PO DAILY [facility] Last Admin: 04/04/17 09:24 Dose: 800 intlu - Labs Labs: 04/02/17 05:40 04/03/17 05:40 - Constitutional Appears: Non-toxic - Head Exam Head Exam: NORMOCEPHALIC - Eye Exam Eye Exam: EOMI, Normal appearance, PERRL Pupil Exam: NORMAL ACCOMODATION - ENT Exam ENT Exam: Mucous Membranes Moist, Normal Oropharynx - Neck Exam Neck Exam: Normal Inspection. absent: Lymphadenopathy - Respiratory Exam Respiratory Exam: Clear to Ausculation Bilateral, NORMAL BREATHING PATTERN - Cardiovascular Exam Cardiovascular Exam: RRR, +S1, +S2 - GI/Abdominal Exam GI & Abdominal Exam: Soft, Normal Bowel Sounds - Extremities Exam Extremities Exam: Normal Capillary Refill, Normal Inspection - Back Exam Back Exam: absent: CVA tenderness (L), CVA tenderness (R) - Neurological Exam Neurological Exam: Alert, Awake, Oriented x3 - Psychiatric Exam Psychiatric exam: Normal Affect, Normal Mood - Skin Skin Exam: Dry, Warm Assessment and Plan - Assessment and Plan (Free Text) Plan: 61 yo female with history of DM2, HTN, HLD and Bipolar DO was admitted in [facility] because of Acute CVA with right sided weakness involving the left De La Torre Radiata and Basal Ganglia. She was transferred to [facility] and admitted in acute rehab for further rehab and therapy. 1. S/P CVA with Right Sided Weakness continue ASA, Lipitor continue PT/OT/ST 2. DM2 BS controlled continue Januvia DC Metformin 3. HTN BP stable hold Lisinopril because of azotemia 4. HLD continue Lipitor 40mg PO HS 5. Renal Insufficiency renal function deteriorating probably secondary to dehydration DC Metformin and Lisinopril start IV hydration with NSS 100cc/hr repeat BMP in am
--- NOTE | 2017-04-04 11:14 | CP.PCM.CON ---
History of Present Illness - History of Present Illness History of Present Illness: Pt seen for supportive therapy. Pt spoke of desire to return home. Pt spoke of gains in therapy, not substantiated by nursing. Pt reminded of the goals of therapy, and patient reiterated her plan for return home. Depression denied and patient less tearful. Past Patient History - Past Medical History & Family History Past Medical History?: Yes - Past Social History Smoking Status: Light Smoker < 10 Cigarettes Daily - CARDIAC Hx Hypertension: Yes - PULMONARY Hx Respiratory Disorders: No - NEUROLOGICAL HX Cerebrovascular Accident: Yes - HEENT Hx HEENT Problems: No - RENAL Hx Chronic Kidney Disease: No - ENDOCRINE/METABOLIC Hx Diabetes Mellitus Type 2: Yes - HEMATOLOGICAL/ONCOLOGICAL Hx AIDS: No Hx Human Immunodeficiency Virus (HIV): No - INTEGUMENTARY Hx Dermatological Problems: No - MUSCULOSKELETAL/RHEUMATOLOGICAL Hx Falls: Yes - GASTROINTESTINAL Hx Gastrointestinal Disorders: No - GENITOURINARY/GYNECOLOGICAL Hx Genitourinary Disorders: No - PSYCHIATRIC Hx Bipolar Disorder: Yes - SURGICAL HISTORY Hx Tubal Ligation: Yes (25 Yrs ago) - ANESTHESIA Hx Anesthesia: Yes Hx Anesthesia Reactions: No Hx Malignant Hyperthermia: No Has any member of the family had a problem w/ anesthesia?: No Meds Allergies/Adverse Reactions: Allergies Allergy/AdvReac Type Severity Reaction Status Date / Time No Known Allergies Allergy Verified 03/26/17 20:36 - Medications Medications: Current Medications Acetaminophen (Tylenol 325mg Tab) 650 mg PO Q4 PRN PRN Reason: pain level 1-10 Last Admin: 03/29/17 00:38 Dose: 650 mg Al Hydrox/Mg Hydrox/Simethicone (Maalox Plus 30 Ml) 30 ml PO Q6 PRN PRN Reason: Indigestion / Heartburn Last Admin: 03/31/17 21:59 Dose: 30 ml Aspirin (Ecotrin) 81 mg PO DAILY [facility] Last Admin: 04/04/17 09:22 Dose: 81 mg Atorvastatin Calcium (Lipitor) 40 mg PO HS [facility] Last Admin: 04/03/17 21:30 Dose: Not Given Docusate Sodium (Colace) 100 mg PO BID [facility] Last Admin: 04/04/17 09:34 Dose: Not Given Enoxaparin Sodium (Lovenox) 40 mg SC DAILY [facility] PRN Reason: Protocol Last Admin: 04/04/17 09:23 Dose: 40 mg Escitalopram Oxalate (Lexapro) 5 mg PO DAILY [facility] Last Admin: 04/04/17 09:22 Dose: 5 mg Sodium Chloride (Sodium Chloride 0.9%) 1,000 mls @ 100 mls/hr IV .Q10H [facility] Stop: 04/04/17 14:06 Last Admin: 04/04/17 00:54 Dose: 100 mls/hr Insulin Human Lispro (Humalog) 0 units SC 0600,2100 [facility] PRN Reason: Protocol Last Admin: 04/04/17 07:47 Dose: Not Given Naphazoline HCl/Pheniramine Maleate (Naphcon-A Opht) 1 drop OU QID PRN PRN Reason: Dry eyes Last Admin: 04/02/17 01:42 Dose: 1 drop Ondansetron HCl (Zofran Inj) 4 mg IVP Q4 PRN PRN Reason: Nausea/Vomiting Last Admin: 04/02/17 00:35 Dose: 4 mg Pantoprazole Sodium (Protonix Ec Tab) 40 mg PO DAILY [facility] Last Admin: 04/04/17 09:29 Dose: Not Given Sitagliptin Phosphate (Januvia) 100 mg PO ACB [facility] Last Admin: 04/04/17 09:23 Dose: 100 mg Vitamin D (Vitamin D 400 Intl Units Tab) 800 intlu PO DAILY [facility] Last Admin: 04/04/17 09:24 Dose: 800 intlu Results - Vital Signs Recent Vital Signs: Last Vital Signs Temp 97.9 F 04/04/17 09:19 Pulse 71 04/04/17 09:19 Resp 18 04/04/17 09:19 BP 124/88 04/04/17 09:19 Pulse Ox 100 04/04/17 09:19 - Labs Result Diagrams: 04/02/17 05:40 04/03/17 05:40 Labs: Laboratory Results - last 24 hr 04/03/17 04/03/17 04/04/17 07:02 21:25 05:58 POC Glucose (mg/dL) 100 147 H 127 H
--- NOTE | 2017-04-04 19:47 | CP.PCM.PN ---
Subjective - Date & Time of Evaluation Date of Evaluation: 04/04/17 Time of Evaluation: 11:00 - Subjective Subjective: no acute complaints at present Objective - Vital Signs/Intake and Output Vital Signs (last 24 hours): Temp Pulse Resp BP Pulse Ox 97.9 F 71 18 124/88 100 04/04/17 09:19 04/04/17 09:19 04/04/17 09:19 04/04/17 09:19 04/04/17 09:19 Intake and Output: 04/04/17 04/05/17 18:59 06:59 Intake Total 200 Balance 200 - Medications Medications: Current Medications Acetaminophen (Tylenol 325mg Tab) 650 mg PO Q4 PRN PRN Reason: pain level 1-10 Last Admin: 03/29/17 00:38 Dose: 650 mg Al Hydrox/Mg Hydrox/Simethicone (Maalox Plus 30 Ml) 30 ml PO Q6 PRN PRN Reason: Indigestion / Heartburn Last Admin: 03/31/17 21:59 Dose: 30 ml Aspirin (Ecotrin) 81 mg PO DAILY [facility] Last Admin: 04/04/17 09:22 Dose: 81 mg Atorvastatin Calcium (Lipitor) 40 mg PO HS [facility] Last Admin: 04/03/17 21:30 Dose: Not Given Docusate Sodium (Colace) 100 mg PO BID [facility] Last Admin: 04/04/17 17:05 Dose: Not Given Enoxaparin Sodium (Lovenox) 40 mg SC DAILY [facility] PRN Reason: Protocol Last Admin: 04/04/17 09:23 Dose: 40 mg Escitalopram Oxalate (Lexapro) 5 mg PO DAILY [facility] Last Admin: 04/04/17 09:22 Dose: 5 mg Insulin Human Lispro (Humalog) 0 units SC 0600,2100 [facility] PRN Reason: Protocol Last Admin: 04/04/17 07:47 Dose: Not Given Naphazoline HCl/Pheniramine Maleate (Naphcon-A Opht) 1 drop OU QID PRN PRN Reason: Dry eyes Last Admin: 04/02/17 01:42 Dose: 1 drop Ondansetron HCl (Zofran Inj) 4 mg IVP Q4 PRN PRN Reason: Nausea/Vomiting Last Admin: 04/02/17 00:35 Dose: 4 mg Pantoprazole Sodium (Protonix Ec Tab) 40 mg PO DAILY [facility] Last Admin: 04/04/17 09:29 Dose: Not Given Sitagliptin Phosphate (Januvia) 100 mg PO ACB [facility] Last Admin: 04/04/17 09:23 Dose: 100 mg Vitamin D (Vitamin D 400 Intl Units Tab) 800 intlu PO DAILY [facility] Last Admin: 04/04/17 09:24 Dose: 800 intlu - Labs Labs: 04/02/17 05:40 04/03/17 05:40 - Head Exam Head Exam: ATRAUMATIC, NORMAL INSPECTION, NORMOCEPHALIC - Eye Exam Eye Exam: EOMI, Normal appearance Pupil Exam: NORMAL ACCOMODATION, PERRL - ENT Exam ENT Exam: Mucous Membranes Moist, Normal Exam - Respiratory Exam Respiratory Exam: Clear to Ausculation Bilateral, NORMAL BREATHING PATTERN - Cardiovascular Exam Cardiovascular Exam: REGULAR RHYTHM - GI/Abdominal Exam GI & Abdominal Exam: Normal Bowel Sounds - Rectal Exam Rectal Exam: NORMAL INSPECTION - Exam External exam: NORMAL EXTERNAL EXAM - Extremities Exam Extremities Exam: Full ROM, Normal Capillary Refill, Normal Inspection Additional comments: problems with strenght and balance - Back Exam Back Exam: NORMAL INSPECTION - Neurological Exam Neurological Exam: Alert, Awake Neuro motor strength exam: Left Upper Extremity: 3, Right Upper Extremity: 3, Left Lower Extremity: 3, Right Lower Extremity: 3 - Psychiatric Exam Psychiatric exam: Normal Affect, Normal Mood - Skin Skin Exam: Dry, Normal Color Assessment and Plan (1) CVA (cerebral vascular accident) Assessment & Plan: plan for physical, occupational, speech , and rec therapy program. monitor skin and bowels Status: Acute
[2017-04-05] MEDS: Insulin Lispro (humaLOG) 100 Units/ml Inj SC SCH ×2 (06:28→21:09)
[2017-04-05 07:20] LABS: MEAN CELL VOLUME 91.2 fl (81.0-99.0); MEAN CORPUSCULAR HEMOGLOBIN 29.5 pg (27.0-31.0); MEAN CORPUSCULAR HGB CONC 32.4 g/dL (33.0-37.0); RED CELL DISTRIBUTION WIDTH 13.4 % (11.5-14.5); WHITE BLOOD COUNT 5.9 K/uL (4.8-10.8)
[2017-04-05 07:32] LABS: BLOOD UREA NITROGEN 17 mg/dl (7-17); CALCIUM 12.2 mg/dL (8.4-10.2); CARBON DIOXIDE 31 mmol/L (22-30); CHLORIDE 107 mmol/L (98-107); GFR AFRICAN-AMERICAN > 60; GLUCOSE,RANDOM 122 mg/dL (65-105); POTASSIUM 4.4 MMOL/L (3.6-5.0); SODIUM 144 mmol/l (132-148)
[2017-04-05] MEDS: Cholecalciferol 400 Intl Units Tab PO SCH (08:16)
[2017-04-05] MEDS: Enoxaparin 40 mg Syringe SC SCH (08:16)
[2017-04-05] MEDS: Pantoprazole 40 mg EC Tab PO SCH (08:18)
[2017-04-05] MEDS: Sodium Chloride 0.9% 1,000 ML IV SCH (09:54)
[2017-04-06] MEDS: Insulin Lispro (humaLOG) 100 Units/ml Inj SC SCH ×2 (07:00→21:24)
[2017-04-06] MEDS: Cholecalciferol 400 Intl Units Tab PO SCH (09:00)
[2017-04-06] MEDS: Enoxaparin 40 mg Syringe SC SCH (09:08)
[2017-04-06] MEDS: Pantoprazole 40 mg EC Tab PO SCH (09:09)
--- NOTE | 2017-04-06 12:30 | CP.PCM.PN ---
Subjective - Date & Time of Evaluation Date of Evaluation: 04/05/17 Time of Evaluation: 11:45 - Subjective Subjective: no acute complaints at present, doing therapy discussing DC planning Objective - Vital Signs/Intake and Output Vital Signs (last 24 hours): Temp Pulse Resp BP Pulse Ox 97.1 F L 63 19 134/74 99 04/06/17 09:18 04/06/17 09:18 04/06/17 09:18 04/06/17 09:18 04/06/17 09:18 - Medications Medications: Current Medications Acetaminophen (Tylenol 325mg Tab) 650 mg PO Q4 PRN PRN Reason: pain level 1-10 Last Admin: 04/05/17 20:02 Dose: 650 mg Al Hydrox/Mg Hydrox/Simethicone (Maalox Plus 30 Ml) 30 ml PO Q6 PRN PRN Reason: Indigestion / Heartburn Last Admin: 03/31/17 21:59 Dose: 30 ml Aspirin (Ecotrin) 81 mg PO DAILY [facility] Last Admin: 04/06/17 09:00 Dose: 81 mg Atorvastatin Calcium (Lipitor) 40 mg PO HS [facility] Last Admin: 04/05/17 21:04 Dose: 40 mg Docusate Sodium (Colace) 100 mg PO BID [facility] Last Admin: 04/06/17 09:07 Dose: 100 mg Enoxaparin Sodium (Lovenox) 40 mg SC DAILY [facility] PRN Reason: Protocol Last Admin: 04/06/17 09:08 Dose: 40 mg Escitalopram Oxalate (Lexapro) 5 mg PO DAILY [facility] Last Admin: 04/06/17 09:09 Dose: 5 mg Insulin Human Lispro (Humalog) 0 units SC 0600,2100 [facility] PRN Reason: Protocol Last Admin: 04/06/17 07:00 Dose: Not Given Naphazoline HCl/Pheniramine Maleate (Naphcon-A Opht) 1 drop OU QID PRN PRN Reason: Dry eyes Last Admin: 04/02/17 01:42 Dose: 1 drop Ondansetron HCl (Zofran Inj) 4 mg IVP Q4 PRN PRN Reason: Nausea/Vomiting Last Admin: 04/02/17 00:35 Dose: 4 mg Pantoprazole Sodium (Protonix Ec Tab) 40 mg PO DAILY [facility] Last Admin: 04/06/17 09:09 Dose: 40 mg Sitagliptin Phosphate (Januvia) 100 mg PO ACB [facility] Last Admin: 04/06/17 07:19 Dose: 100 mg Vitamin D (Vitamin D 400 Intl Units Tab) 800 intlu PO DAILY [facility] Last Admin: 04/06/17 09:00 Dose: 800 intlu - Labs Labs: 04/05/17 05:30 04/05/17 05:30 - Head Exam Head Exam: ATRAUMATIC, NORMAL INSPECTION, NORMOCEPHALIC - Eye Exam Eye Exam: EOMI, Normal appearance Pupil Exam: NORMAL ACCOMODATION, PERRL - ENT Exam ENT Exam: Mucous Membranes Moist, Normal Exam - Neck Exam Neck Exam: Normal Inspection - Respiratory Exam Respiratory Exam: Clear to Ausculation Bilateral, NORMAL BREATHING PATTERN - Cardiovascular Exam Cardiovascular Exam: REGULAR RHYTHM - GI/Abdominal Exam GI & Abdominal Exam: Normal Bowel Sounds - Rectal Exam Rectal Exam: NORMAL INSPECTION - Exam External exam: NORMAL EXTERNAL EXAM - Extremities Exam Extremities Exam: Normal Capillary Refill, Normal Inspection - Back Exam Back Exam: NORMAL INSPECTION - Neurological Exam Neurological Exam: Alert, Awake Neuro motor strength exam: Left Upper Extremity: 3, Right Upper Extremity: 3, Left Lower Extremity: 3, Right Lower Extremity: 3 - Psychiatric Exam Psychiatric exam: Normal Affect, Normal Mood - Skin Skin Exam: Dry, Normal Color Assessment and Plan (1) CVA (cerebral vascular accident) Status: Acute - Assessment and Plan (Free Text) Assessment: plan for physical, occupational, rec therapy and speech therapy, rom, strenghtneing, transfers and gait training. continue with Dc planning
[2017-04-07] MEDS: Insulin Lispro (humaLOG) 100 Units/ml Inj SC SCH ×2 (06:56→21:00)
[2017-04-07] MEDS: Cholecalciferol 400 Intl Units Tab PO SCH ×2 (08:16→08:23)
[2017-04-07] MEDS: Pantoprazole 40 mg EC Tab PO SCH (08:17)
[2017-04-07] MEDS: Enoxaparin 40 mg Syringe SC SCH (08:17)
--- NOTE | 2017-04-07 10:02 | CP.PCM.PN ---
Subjective - Date & Time of Evaluation Date of Evaluation: 04/07/17 Time of Evaluation: 15:00 - Subjective Subjective: Patient seen and examined.Sitting in the chair in NAD.Feeling better. Participating with PT. Hemodynamically stable, afebrile . Objective - Vital Signs/Intake and Output Vital Signs (last 24 hours): Temp Pulse Resp BP Pulse Ox 97.4 F L 62 18 106/71 97 04/07/17 08:05 04/07/17 08:05 04/07/17 08:05 04/07/17 08:05 04/07/17 08:05 - Medications Medications: Current Medications Acetaminophen (Tylenol 325mg Tab) 650 mg PO Q4 PRN PRN Reason: pain level 1-10 Last Admin: 04/05/17 20:02 Dose: 650 mg Al Hydrox/Mg Hydrox/Simethicone (Maalox Plus 30 Ml) 30 ml PO Q6 PRN PRN Reason: Indigestion / Heartburn Last Admin: 03/31/17 21:59 Dose: 30 ml Aspirin (Ecotrin) 81 mg PO DAILY [facility] Last Admin: 04/07/17 08:18 Dose: 81 mg Atorvastatin Calcium (Lipitor) 40 mg PO HS [facility] Last Admin: 04/06/17 21:08 Dose: 40 mg Docusate Sodium (Colace) 100 mg PO BID [facility] Last Admin: 04/07/17 08:22 Dose: Not Given Enoxaparin Sodium (Lovenox) 40 mg SC DAILY [facility] PRN Reason: Protocol Last Admin: 04/07/17 08:17 Dose: 40 mg Escitalopram Oxalate (Lexapro) 5 mg PO DAILY [facility] Last Admin: 04/07/17 08:17 Dose: 5 mg Insulin Human Lispro (Humalog) 0 units SC 0600,2100 [facility] PRN Reason: Protocol Last Admin: 04/07/17 06:56 Dose: Not Given Lactulose (Enulose) 20 gm PO DAILY [facility] PRN Reason: Constipation Naphazoline HCl/Pheniramine Maleate (Naphcon-A Opht) 1 drop OU QID PRN PRN Reason: Dry eyes Last Admin: 04/02/17 01:42 Dose: 1 drop Ondansetron HCl (Zofran Inj) 4 mg IVP Q4 PRN PRN Reason: Nausea/Vomiting Last Admin: 04/02/17 00:35 Dose: 4 mg Pantoprazole Sodium (Protonix Ec Tab) 40 mg PO DAILY [facility] Last Admin: 04/07/17 08:17 Dose: 40 mg Sitagliptin Phosphate (Januvia) 100 mg PO ACB [facility] Last Admin: 04/07/17 07:07 Dose: 100 mg Vitamin D (Vitamin D 400 Intl Units Tab) 800 intlu PO DAILY [facility] Last Admin: 04/07/17 08:23 Dose: Not Given - Labs Labs: 04/05/17 05:30 04/05/17 05:30 - Constitutional Appears: Non-toxic, No Acute Distress, Other (obese) - Head Exam Head Exam: ATRAUMATIC, NORMOCEPHALIC - Eye Exam Eye Exam: EOMI, Normal appearance, PERRL Pupil Exam: NORMAL ACCOMODATION - ENT Exam ENT Exam: Mucous Membranes Moist, Normal Exam - Neck Exam Neck Exam: Full ROM, Normal Inspection - Respiratory Exam Respiratory Exam: Clear to Ausculation Bilateral, NORMAL BREATHING PATTERN. absent: Rales, Rhonchi, Wheezes - Cardiovascular Exam Cardiovascular Exam: REGULAR RHYTHM, RRR, +S1, +S2. absent: JVD - GI/Abdominal Exam GI & Abdominal Exam: Soft, Normal Bowel Sounds. absent: Distended, Guarding, Tenderness, Rebound - Rectal Exam Rectal Exam: Deferred - Extremities Exam Extremities Exam: Full ROM, Normal Capillary Refill, Normal Inspection. absent : Calf Tenderness, Pedal Edema - Back Exam Back Exam: NORMAL INSPECTION - Neurological Exam Neurological Exam: Alert, Awake, Oriented x3 Additional comments: right side weakness slurred speech - Psychiatric Exam Psychiatric exam: Normal Affect, Normal Mood - Skin Skin Exam: Dry, Intact, Normal Color, Warm Assessment and Plan - Assessment and Plan (Free Text) Assessment: 61 yo female with history of DM2, HTN, HLD and Bipolar DO was admitted in [facility] because of Acute CVA with right sided weakness involving the left De La Torre Radiata and Basal Ganglia. She was transferred to [facility] and admitted in acute rehab for further rehab and therapy.Participating well with PT . 1. S/P CVA with Right Sided Weakness continue ASA, Lipitor continue PT/OT/ST 2. DM2 BS controlled continue Januvia Discontinued Metformin due to renal failure 3. HTN BP stable without medication held Lisinopril due to renal failure 4. HLD continue Lipitor 40mg PO HS 5. Renal Insufficiency improved with hydration Discontinued Metformin and Lisinopril 6.Bipolar disorder on Lexapro 6.DVt prophylaxis lovenox
[2017-04-08] MEDS: Insulin Lispro (humaLOG) 100 Units/ml Inj SC SCH ×2 (07:00→21:00)
[2017-04-08 07:39] LABS: HEMATOCRIT 39.3 % (34.0-47.0); MEAN CELL VOLUME 88.2 fl (81.0-99.0); MEAN CORPUSCULAR HEMOGLOBIN 29.2 pg (27.0-31.0); MEAN CORPUSCULAR HGB CONC 33.1 g/dL (33.0-37.0); RED CELL DISTRIBUTION WIDTH 13.4 % (11.5-14.5); WHITE BLOOD COUNT 6.3 K/uL (4.8-10.8)
[2017-04-08 08:08] LABS: BLOOD UREA NITROGEN 19 mg/dl (7-17); CALCIUM 11.7 mg/dL (8.4-10.2); CARBON DIOXIDE 32 mmol/L (22-30); CHLORIDE 107 mmol/L (98-107); GFR AFRICAN-AMERICAN > 60; GLUCOSE,RANDOM 136 mg/dL (65-105); POTASSIUM 4.3 MMOL/L (3.6-5.0); SODIUM 145 mmol/l (132-148)
[2017-04-08] MEDS: Enoxaparin 40 mg Syringe SC SCH (08:14)
[2017-04-08] MEDS: Pantoprazole 40 mg EC Tab PO SCH (08:15)
[2017-04-08] MEDS: Cholecalciferol 400 Intl Units Tab PO SCH (08:16)
[2017-04-09] MEDS: Insulin Lispro (humaLOG) 100 Units/ml Inj SC SCH ×2 (06:24→21:40)
[2017-04-09] MEDS: Enoxaparin 40 mg Syringe SC SCH (08:25)
[2017-04-09] MEDS: Pantoprazole 40 mg EC Tab PO SCH (08:25)
[2017-04-09] MEDS: Cholecalciferol 400 Intl Units Tab PO SCH (08:26)
--- NOTE | 2017-04-09 12:17 | PSY.TMCNF ---
Nursing - Vital Signs Vital Signs (Last 8 hours): Vital Signs 04/09/17 09:14 Temperature 97.4 F L Pulse Rate 20 L Respiratory 98 H Rate Blood Pressure 135/75 O2 Sat by Pulse 98 Oximetry Pain: 0 - Precautions: Precautions: Fall Prevention, Aspiration - Medications/Other Issues Comment: Needs a lot of encourgement to participate with therapies. Safety precautions. Refuses some medcarolyn, aware. - Consults Comment: Dr. Arora-Ellis, , Dr. Gill - Toileting Toileting: Dependent - Bladder Management Bladder Pattern: Normal Voiding Method: Toilet - Bowel Management Bowel Pattern: Normal Bowel Management: Supervision Frequency of Accidents: 0 - Transfers Transfers: Minimal Assistance - ADL's ADL's: Moderate Assistance - Patient/Family Teaching Comments: Care post CVA and safety precautions - Goals/Time Frame Comments: Per multidisciplinary care plans and goals - Provider Provider: Marilyn ROTHN RN CRRN Physical Therapy - Bed Mobility Bed Mobility: Verbal Cues, Contact Guard, Minimal Assistance - Transfers Wheelchair to Mat: Verbal Cues, Contact Guard, Minimal Assistance, Moderate Assistance Sit to Stand: Verbal Cues, Contact Guard, Minimal Assistance Comment: RW - Ambulation Level of Assistance: Verbal Cues, Contact Guard, Minimal Assistance Distance (ft.): 120 Assistive Devices: Rolling Walker - Stair Negotiation Stairs: Level of Assistance: Minimal Assistance, Moderate Assistance Number of Stairs: 2 Stairs: Assistive Devices: Left Handrail Comment: 2 6inch steps with CG/min A on ascent and mod A on descent with L rail. -step by step cues for sequencing. -R DF wrap; impaired R knee control noted on descent with R knee moving towards hyperextension during stance on descent - Standing Balance Static Stand: Contact Guard Assist Dynamic Stand: Minimal Assistance, Moderate Assistance - Pain Comment: Pt with intermittent complaints of back pain - Insight/Carryover Insight/Carryover: Good - Patient/Family Education Comment: CVA recovery, safety, hemiplegic compensatory strategies for ADLs, pt demonstrating understanding however requires continued reinforcement - Assessment/Plan Assessment: Pt is motivated by progress made, pt continues to display increased independence with self care daily and increase RUE ROM. Pt requires continued OT services to maximize RUE /motor control function and increase independence with ADLs and functional mobility. - Goals Timeframe: 2 weeks Goals: S with LE dressing. S with UE dressing. S with toileting. S with toilet txfers. S with bathing. S with shower txfer - Provider Therapist: Margi Mcgee PT, DPT License Number: [id number] Occupational Therapy - Arousal/Attention/Orientation Patient Orientation: Person, Place, Time, Appropriate to Age, Appropriate to Situation - ADL/IADL Self Feeding: Supervision, Verbal Cues, Set-up Help Grooming: Supervision, Verbal Cues, Set-up Help Bathing-Upper Extremity: Verbal Cues, Set-up Help, Minimal Assistance Bathing-Lower Extremity: Verbal Cues, Set-up Help, Minimal Assistance Dressing-Upper Extremity: Verbal Cues, Set-up Help, Minimal Assistance Dressing-Lower Extremity: Verbal Cues, Set-up Help, Minimal Assistance - Sitting Balance Static Sitting: Supervision Dynamic Sitting: Reaches across midline, Reaches out of base of support, Reaches within base of support, Requires supervision - Transfers Wheelchair to Bed Transfers: Verbal Cues, Set-up Help, Contact Guard Toilet Transfers: Verbal Cues, Set-up Help, Contact Guard Tub Transfers: Verbal Cues, Set-up Help, Minimal Assistance - Wheelchair Management Level of Assistance: Dependent - Upper Extremity Status Right Upper Extremity Comment: RUE PROM WFL. AROM shoulder flexion 120*. Poor coordination Left Upper Extremity Comment: LUE ROM WFL - Pain Comment: Pt with intermittent complaints of back pain - Insight/Carryover Insight/Carryover: Good - Patient/Family Education Comment: CVA recovery, safety, hemiplegic compensatory strategies for ADLs, pt demonstrating understanding however requires continued reinforcement - Assessment/Plan Assessment: Pt is motivated by progress made, pt continues to display increased independence with self care daily and increase RUE ROM. Pt requires continued OT services to maximize RUE /motor control function and increase independence with ADLs and functional mobility. - Goals Timeframe: 2 weeks Goals: S with LE dressing. S with UE dressing. S with toileting. S with toilet txfers. S with bathing. S with shower txfer - Provider Therapist: Ro Brower License Number: [id number] Speech Therapy - Consult Information Patient on Program: Yes Medical Diagnosis: CVA Treatment Diagnosis: -moderate dysarthria. -moderate cognitive deficits - Assessment Expressive Language Impairment: Mild Receptive Language Impairment: Mild Problem Solving Impairment: Moderate Memory Impairment: Moderate Speech/Articulation Impairment: Mild Comment: moderate to mild - Plan Assessment: Pt is motivated by progress made, pt continues to display increased independence with self care daily and increase RUE ROM. Pt requires continued OT services to maximize RUE /motor control function and increase independence with ADLs and functional mobility. - Provider Therapist: Ladi Garcia License Number: [id number] Recreational Therapy - Participation Participation: Participates in Individual and/or Group Sessions - Attendance Attendance: Daily - Activities Leisure Activities: Cards and Games - Socialization Level of Socialization: Initiates/interacts freely with care givers and peer - Diversional Time Diversional Time: television, likes to play cards, bingo - Assessment Assessment/Plan: Pt is motivated by progress made, pt continues to display increased independence with self care daily and increase RUE ROM. Pt requires continued OT services to maximize RUE /motor control function and increase independence with ADLs and functional mobility. - Provider Therapist: Leonie Wood, [employer] #[id number] Nutrition - Current Diet Current Diet/ Supplement/ Feedings: Advanced bite size thin liquids moderate consistent CHO 2 gram Na. Glucerna shake 2 per day - Appetite Percent Meal Consumed: 50-74% - Comments Comments: Care post CVA and safety precautions - Assessment/Goals/Time Frame Assessment/Goals/Time Frame: Needs a lot of encourgement to participate with therapies. Safety precautions. Refuses some MD quirino aware. - Provider Provider: Acacia Mejia RD Case Management - Psychosocial Assessment Support Systems: Patient's daughter Nat- [phone]. Patient's wrapper caser Karen- [phone]. Patient's social insurance administrator Wilfrid- [phone] Psychological Interventions/Needs: Patient is alert with impairments in short term memory and recall. Patient with decreased motivation and poor insight into impairments. Discharge Concerns: Patient currently requiring min-mod A for bed mobility, gait and transfers. Patient's SW in the community has secured housing for patient after discharge, however, requires patient to be completely independent without requiring any assistance Patient/Family Meeting: CM met with patient and rehab team. Intervention/Goal/Outcome:: 1. PLAN: LC as patient will likely still require assistance after rehab. 2. CM left message for SW Wilfrid Santa to inquire about discharge options- [phone]. 3. Tentative discharge date: 04/14/2017. 4. continued stay review, LAD: 04/08, updates due on 04/07. 5. continued emotional support - Discharge Plan Discharge Plan: Subacute care - Provider Provider: AMARJIT Griffin LSW License Number: [id number] Rehabilitation Plan - Treatment Plan Treatment Plan: Physical Therapy, Occupational Therapy, Speech, Dietary, Patient /Family Education - Recommendation Recommendation: Physical Therapy, Occupational Therapy, Speech, Dietary, Patient /Family Education - Discharge Plan Discharge to: Home (04/14)
--- NOTE | 2017-04-09 13:10 | CP.PCM.PN ---
Subjective - Date & Time of Evaluation Date of Evaluation: 04/08/17 Time of Evaluation: 19:00 - Subjective Subjective: no acute complaints at present Objective - Vital Signs/Intake and Output Vital Signs (last 24 hours): Temp Pulse Resp BP Pulse Ox 97.4 F L 20 L 98 H 135/75 98 04/09/17 09:14 04/09/17 09:14 04/09/17 09:14 04/09/17 09:14 04/09/17 09:14 - Medications Medications: Current Medications Acetaminophen (Tylenol 325mg Tab) 650 mg PO Q4 PRN PRN Reason: pain level 1-10 Last Admin: 04/05/17 20:02 Dose: 650 mg Al Hydrox/Mg Hydrox/Simethicone (Maalox Plus 30 Ml) 30 ml PO Q6 PRN PRN Reason: Indigestion / Heartburn Last Admin: 03/31/17 21:59 Dose: 30 ml Aspirin (Ecotrin) 81 mg PO DAILY [facility] Last Admin: 04/09/17 08:25 Dose: 81 mg Atorvastatin Calcium (Lipitor) 40 mg PO HS [facility] Last Admin: 04/08/17 21:13 Dose: 40 mg Docusate Sodium (Colace) 100 mg PO BID [facility] Last Admin: 04/09/17 08:25 Dose: 100 mg Enoxaparin Sodium (Lovenox) 40 mg SC DAILY [facility] PRN Reason: Protocol Last Admin: 04/09/17 08:25 Dose: 40 mg Escitalopram Oxalate (Lexapro) 5 mg PO DAILY [facility] Last Admin: 04/09/17 08:25 Dose: 5 mg Insulin Human Lispro (Humalog) 0 units SC 0600,2100 [facility] PRN Reason: Protocol Last Admin: 04/09/17 06:24 Dose: Not Given Lactulose (Enulose) 20 gm PO DAILY PRN PRN Reason: Constipation Naphazoline HCl/Pheniramine Maleate (Naphcon-A Opht) 1 drop OU QID PRN PRN Reason: Dry eyes Last Admin: 04/02/17 01:42 Dose: 1 drop Ondansetron HCl (Zofran Inj) 4 mg IVP Q4 PRN PRN Reason: Nausea/Vomiting Last Admin: 04/02/17 00:35 Dose: 4 mg Pantoprazole Sodium (Protonix Ec Tab) 40 mg PO DAILY [facility] Last Admin: 04/09/17 08:25 Dose: 40 mg Sitagliptin Phosphate (Januvia) 100 mg PO ACB [facility] Last Admin: 04/09/17 07:10 Dose: 100 mg Vitamin D (Vitamin D 400 Intl Units Tab) 800 intlu PO DAILY [facility] Last Admin: 04/09/17 08:26 Dose: Not Given - Labs Labs: 04/08/17 06:10 04/08/17 06:10 - Head Exam Head Exam: ATRAUMATIC, NORMAL INSPECTION, NORMOCEPHALIC - Eye Exam Eye Exam: EOMI, Normal appearance, PERRL Pupil Exam: NORMAL ACCOMODATION - ENT Exam ENT Exam: Mucous Membranes Moist, Normal Exam - Respiratory Exam Respiratory Exam: NORMAL BREATHING PATTERN - Cardiovascular Exam Cardiovascular Exam: REGULAR RHYTHM - GI/Abdominal Exam GI & Abdominal Exam: Soft, Normal Bowel Sounds - Rectal Exam Rectal Exam: NORMAL INSPECTION - Exam External exam: NORMAL EXTERNAL EXAM - Extremities Exam Extremities Exam: Normal Capillary Refill, Normal Inspection - Back Exam Back Exam: NORMAL INSPECTION - Neurological Exam Neurological Exam: Alert, Awake Neuro motor strength exam: Left Upper Extremity: 4, Right Upper Extremity: 3, Left Lower Extremity: 4, Right Lower Extremity: 3 - Psychiatric Exam Psychiatric exam: Normal Affect, Normal Mood - Skin Skin Exam: Intact, Normal Color Assessment and Plan (1) CVA (cerebral vascular accident) Status: Acute - Assessment and Plan (Free Text) Assessment: plan fo rphysical, occupational, rec and speech therapy
--- NOTE | 2017-04-09 14:09 | PN ---
PHYSIATRY PROGRESS NOTE SUBJECTIVE: The patient is feeling fine. No acute complaints of any pain. PHYSICAL EXAMINATION VITAL SIGNS: Vitals are stable. NECK: Supple. CHEST: Symmetrical. HEART: Sounds S1 and S2. ABDOMEN: Abdominal area is benign. EXTREMITIES: No clubbing, cyanosis or edema. The patient with right-sided weakness. DIAGNOSES: Acute cerebrovascular accident, hypertension, diabetes, hypercholesterolemia. PLAN: Physical therapy, occupational therapy, recreational therapy, speech therapy program. Tentative discharge is 04/14/2017 and then for subacute rehab. Discussed discharge planning with the patient. Flavio Walker MD
--- NOTE | 2017-04-09 14:15 | CP.PCM.PN ---
Subjective - Date & Time of Evaluation Date of Evaluation: 04/09/17 Time of Evaluation: 11:00 - Subjective Subjective: The patient was seen and examined in the physical therapy room. She is frustrated due to her weakness but is cooperative with PT. She is hemodynamically stable and afebrile at this time. Objective - Vital Signs/Intake and Output Vital Signs (last 24 hours): Temp Pulse Resp BP Pulse Ox 97.4 F L 20 L 98 H 135/75 98 04/09/17 09:14 04/09/17 09:14 04/09/17 09:14 04/09/17 09:14 04/09/17 09:14 - Medications Medications: Current Medications Acetaminophen (Tylenol 325mg Tab) 650 mg PO Q4 PRN PRN Reason: pain level 1-10 Last Admin: 04/05/17 20:02 Dose: 650 mg Al Hydrox/Mg Hydrox/Simethicone (Maalox Plus 30 Ml) 30 ml PO Q6 PRN PRN Reason: Indigestion / Heartburn Last Admin: 03/31/17 21:59 Dose: 30 ml Aspirin (Ecotrin) 81 mg PO DAILY [facility] Last Admin: 04/09/17 08:25 Dose: 81 mg Atorvastatin Calcium (Lipitor) 40 mg PO HS [facility] Last Admin: 04/08/17 21:13 Dose: 40 mg Docusate Sodium (Colace) 100 mg PO BID [facility] Last Admin: 04/09/17 08:25 Dose: 100 mg Enoxaparin Sodium (Lovenox) 40 mg SC DAILY [facility] PRN Reason: Protocol Last Admin: 04/09/17 08:25 Dose: 40 mg Escitalopram Oxalate (Lexapro) 5 mg PO DAILY [facility] Last Admin: 04/09/17 08:25 Dose: 5 mg Insulin Human Lispro (Humalog) 0 units SC 0600,2100 [facility] PRN Reason: Protocol Last Admin: 04/09/17 06:24 Dose: Not Given Lactulose (Enulose) 20 gm PO DAILY PRN PRN Reason: Constipation Naphazoline HCl/Pheniramine Maleate (Naphcon-A Opht) 1 drop OU QID PRN PRN Reason: Dry eyes Last Admin: 04/02/17 01:42 Dose: 1 drop Ondansetron HCl (Zofran Inj) 4 mg IVP Q4 PRN PRN Reason: Nausea/Vomiting Last Admin: 04/02/17 00:35 Dose: 4 mg Pantoprazole Sodium (Protonix Ec Tab) 40 mg PO DAILY [facility] Last Admin: 04/09/17 08:25 Dose: 40 mg Sitagliptin Phosphate (Januvia) 100 mg PO ACB [facility] Last Admin: 04/09/17 07:10 Dose: 100 mg Vitamin D (Vitamin D 400 Intl Units Tab) 800 intlu PO DAILY [facility] Last Admin: 04/09/17 08:26 Dose: Not Given - Labs Labs: 04/08/17 06:10 04/08/17 06:10 - Additional Findings Additional findings: Physical exam: Constitutional- cooperative, awake, alert. obese female in NAD Head- NCAT, PERRL Eye- PERRL, normal accommodation ENT- normal exam, MMM. Neck- normal inspection, supple, no JVD Respiratory- CTAB, no wheezes rales rhonchi Cardiovascular- RRR, +S1, +S2 no MRG GI/Abdominal- normal bowel sounds, soft Skin- warm, dry Extremities Exam- normal capillary refill, normal inspection Neurological Exam- alert, stable gait Psych- normal mood, normal affect Assessment and Plan - Assessment and Plan (Free Text) Plan: Assessment: 61 yo female with history of DM2, HTN, HLD and Bipolar DO was admitted in [facility] because of Acute CVA with right sided weakness involving the left De La Torre Radiata and Basal Ganglia. She was transferred to [facility] and admitted in acute rehab for further rehab and therapy. Cooperative well with physical therapy. 1. S/P CVA with Right Sided Weakness continue ASA, Lipitor continue PT/OT/ST 2. DM2 BS controlled continue Januvia Restart Metformin 3. HTN Restart lisinopril as renal insufficiency is resolved 4. HLD continue Lipitor 40mg PO HS 5. Renal Insufficiency- resolved back to normal baseline Restart Metformin Restart Lisinopril at low dose Monitor renal function- repeat BMP on Friday 6.Bipolar disorder on Lexapro 6.DVT prophylaxis lovenox
[2017-04-10] MEDS: Insulin Lispro (humaLOG) 100 Units/ml Inj SC SCH ×2 (06:38→21:05)
[2017-04-10] MEDS: Alum-Mag Hydrox-Simethicone Susp (30 mL) PO PRN (06:42)
[2017-04-10] MEDS: Enoxaparin 40 mg Syringe SC SCH (08:24)
[2017-04-10] MEDS: Pantoprazole 40 mg EC Tab PO SCH (08:25)
[2017-04-10] MEDS: Cholecalciferol 400 Intl Units Tab PO SCH (08:25)
[2017-04-11] MEDS: Insulin Lispro (humaLOG) 100 Units/ml Inj SC SCH ×2 (06:30→21:31)
[2017-04-11 07:15] LABS: HEMATOCRIT 38.8 % (34.0-47.0); MEAN CELL VOLUME 90.8 fl (81.0-99.0); MEAN CORPUSCULAR HEMOGLOBIN 29.5 pg (27.0-31.0); MEAN CORPUSCULAR HGB CONC 32.5 g/dL (33.0-37.0); RED CELL DISTRIBUTION WIDTH 13.9 % (11.5-14.5)
[2017-04-11 07:55] LABS: BLOOD UREA NITROGEN 18 mg/dl (7-17); CALCIUM 11.7 mg/dL (8.4-10.2); CARBON DIOXIDE 30 mmol/L (22-30); CHLORIDE 107 mmol/L (98-107); GFR AFRICAN-AMERICAN > 60; GLUCOSE,RANDOM 90 mg/dL (65-105); POTASSIUM 4.3 MMOL/L (3.6-5.0); SODIUM 143 mmol/l (132-148)
[2017-04-11] MEDS: Enoxaparin 40 mg Syringe SC SCH (08:55)
[2017-04-11] MEDS: Pantoprazole 40 mg EC Tab PO SCH (08:56)
[2017-04-11] MEDS: Cholecalciferol 400 Intl Units Tab PO SCH (08:59)
--- NOTE | 2017-04-11 12:09 | CP.PCM.PN ---
Subjective - Date & Time of Evaluation Date of Evaluation: 04/11/17 Time of Evaluation: 12:07 - Subjective Subjective: this is a 48-year-old female seen and examined at bedside for CVA, hypertension , DM, HLD. Patient is in better spirits. States physical therapy is going well. Denies any complaint of shortness of breath or chest pain or calf tenderness. Hemodynamically stable Objective - Vital Signs/Intake and Output Vital Signs (last 24 hours): Temp Pulse Resp BP Pulse Ox 98.1 F 70 20 130/70 98 04/10/17 20:09 04/11/17 08:57 04/10/17 20:09 04/11/17 08:57 04/10/17 20:09 Physical exam: Constitutional- cooperative, awake, alert. Head- NCAT, PERRL Eye- PERRL, normal accommodation ENT- normal exam, MMM. Neck- normal inspection, supple, no JVD Respiratory- CTAB, no wheezes rales rhonchi Cardiovascular- RRR, +S1, +S2 no MRG GI/Abdominal- normal bowel sounds, soft, no mass, no hsm Skin- warm, dry Extremities Exam- normal capillary refill, normal inspection Neurological Exam- alert, awake Psych- normal mood, normal affect - Medications Medications: Current Medications Acetaminophen (Tylenol 325mg Tab) 650 mg PO Q4 PRN PRN Reason: pain level 1-10 Last Admin: 04/09/17 13:58 Dose: 650 mg Al Hydrox/Mg Hydrox/Simethicone (Maalox Plus 30 Ml) 30 ml PO Q6 PRN PRN Reason: Indigestion / Heartburn Last Admin: 04/10/17 06:42 Dose: 30 ml Aspirin (Ecotrin) 81 mg PO DAILY [facility] Last Admin: 04/11/17 08:56 Dose: 81 mg Atorvastatin Calcium (Lipitor) 40 mg PO HS [facility] Last Admin: 04/10/17 21:04 Dose: 40 mg Docusate Sodium (Colace) 100 mg PO BID [facility] Last Admin: 04/11/17 08:56 Dose: 100 mg Enoxaparin Sodium (Lovenox) 40 mg SC DAILY [facility] PRN Reason: Protocol Last Admin: 04/11/17 08:55 Dose: 40 mg Escitalopram Oxalate (Lexapro) 5 mg PO DAILY [facility] Last Admin: 04/11/17 08:56 Dose: 5 mg Insulin Human Lispro (Humalog) 0 units SC 0600,2100 [facility] PRN Reason: Protocol Last Admin: 04/11/17 06:30 Dose: Not Given Lactulose (Enulose) 20 gm PO DAILY PRN PRN Reason: Constipation Lisinopril (Zestril) 10 mg PO DAILY [facility] Last Admin: 04/11/17 08:57 Dose: 10 mg Metformin HCl (Glucophage) 1,000 mg PO BIDWM [facility] Last Admin: 04/11/17 08:56 Dose: 1,000 mg Naphazoline HCl/Pheniramine Maleate (Naphcon-A Opht) 1 drop OU QID PRN PRN Reason: Dry eyes Last Admin: 04/02/17 01:42 Dose: 1 drop Ondansetron HCl (Zofran Inj) 4 mg IVP Q4 PRN PRN Reason: Nausea/Vomiting Last Admin: 04/02/17 00:35 Dose: 4 mg Pantoprazole Sodium (Protonix Ec Tab) 40 mg PO DAILY [facility] Last Admin: 04/11/17 08:56 Dose: 40 mg Sitagliptin Phosphate (Januvia) 100 mg PO ACB [facility] Last Admin: 04/11/17 08:56 Dose: 100 mg Vitamin D (Vitamin D 400 Intl Units Tab) 800 intlu PO DAILY [facility] Last Admin: 04/11/17 08:59 Dose: 800 intlu - Labs Labs: 04/11/17 06:15 04/11/17 06:15 Assessment and Plan - Assessment and Plan (Free Text) Plan: 61 yo female with history of DM2, HTN, HLD and Bipolar DO was admitted in [facility] because of Acute CVA with right sided weakness involving the left De La Torre Radiata and Basal Ganglia. She was transferred to [facility] and admitted in acute rehab for further rehab and therapy. Cooperative well with physical therapy. 1. S/P CVA with Right Sided Weakness continue ASA, Lipitor continue PT/OT/ST 2. DM2 BS controlled continue Januvia Restart Metformin 3. HTN Restart lisinopril as renal insufficiency is resolved 4. HLD continue Lipitor 40mg PO HS 5. Renal Insufficiency- resolved back to normal baseline Restart Metformin Restart Lisinopril at low dose Monitor renal function- repeat BMP on Friday 6.Bipolar disorder on Lexapro 6.DVT prophylaxis lovenox
--- NOTE | 2017-04-11 13:45 | CP.PCM.PN ---
Subjective - Date & Time of Evaluation Date of Evaluation: 04/11/17 Time of Evaluation: 09:00 - Subjective Subjective: no acute complaints at present Objective - Vital Signs/Intake and Output Vital Signs (last 24 hours): Temp Pulse Resp BP Pulse Ox 98.1 F 70 20 130/70 98 04/10/17 20:09 04/11/17 08:57 04/10/17 20:09 04/11/17 08:57 04/10/17 20:09 - Medications Medications: Current Medications Acetaminophen (Tylenol 325mg Tab) 650 mg PO Q4 PRN PRN Reason: pain level 1-10 Last Admin: 04/09/17 13:58 Dose: 650 mg Al Hydrox/Mg Hydrox/Simethicone (Maalox Plus 30 Ml) 30 ml PO Q6 PRN PRN Reason: Indigestion / Heartburn Last Admin: 04/10/17 06:42 Dose: 30 ml Aspirin (Ecotrin) 81 mg PO DAILY [facility] Last Admin: 04/11/17 08:56 Dose: 81 mg Atorvastatin Calcium (Lipitor) 40 mg PO HS [facility] Last Admin: 04/10/17 21:04 Dose: 40 mg Docusate Sodium (Colace) 100 mg PO BID [facility] Last Admin: 04/11/17 08:56 Dose: 100 mg Enoxaparin Sodium (Lovenox) 40 mg SC DAILY [facility] PRN Reason: Protocol Last Admin: 04/11/17 08:55 Dose: 40 mg Escitalopram Oxalate (Lexapro) 5 mg PO DAILY [facility] Last Admin: 04/11/17 08:56 Dose: 5 mg Insulin Human Lispro (Humalog) 0 units SC 0600,2100 [facility] PRN Reason: Protocol Last Admin: 04/11/17 06:30 Dose: Not Given Lactulose (Enulose) 20 gm PO DAILY PRN PRN Reason: Constipation Lisinopril (Zestril) 10 mg PO DAILY [facility] Last Admin: 04/11/17 08:57 Dose: 10 mg Metformin HCl (Glucophage) 1,000 mg PO BIDWM [facility] Last Admin: 04/11/17 08:56 Dose: 1,000 mg Naphazoline HCl/Pheniramine Maleate (Naphcon-A Opht) 1 drop OU QID PRN PRN Reason: Dry eyes Last Admin: 04/02/17 01:42 Dose: 1 drop Ondansetron HCl (Zofran Inj) 4 mg IVP Q4 PRN PRN Reason: Nausea/Vomiting Last Admin: 04/02/17 00:35 Dose: 4 mg Pantoprazole Sodium (Protonix Ec Tab) 40 mg PO DAILY [facility] Last Admin: 04/11/17 08:56 Dose: 40 mg Sitagliptin Phosphate (Januvia) 100 mg PO ACB [facility] Last Admin: 04/11/17 08:56 Dose: 100 mg Vitamin D (Vitamin D 400 Intl Units Tab) 800 intlu PO DAILY [facility] Last Admin: 04/11/17 08:59 Dose: 800 intlu - Labs Labs: 04/11/17 06:15 04/11/17 06:15 - Head Exam Head Exam: ATRAUMATIC, NORMAL INSPECTION, NORMOCEPHALIC - Eye Exam Eye Exam: EOMI, Normal appearance, PERRL Pupil Exam: NORMAL ACCOMODATION - ENT Exam ENT Exam: Mucous Membranes Moist, Normal Exam - Neck Exam Neck Exam: Normal Inspection - Respiratory Exam Respiratory Exam: NORMAL BREATHING PATTERN - Cardiovascular Exam Cardiovascular Exam: REGULAR RHYTHM - GI/Abdominal Exam GI & Abdominal Exam: Soft, Normal Bowel Sounds - Rectal Exam Rectal Exam: NORMAL INSPECTION - Exam External exam: NORMAL EXTERNAL EXAM - Extremities Exam Extremities Exam: Full ROM, Normal Capillary Refill - Neurological Exam Neurological Exam: Alert, Awake Neuro motor strength exam: Left Upper Extremity: 4, Right Upper Extremity: 3, Left Lower Extremity: 4, Right Lower Extremity: 3 - Psychiatric Exam Psychiatric exam: Normal Affect, Normal Mood - Skin Skin Exam: Dry, Normal Color Assessment and Plan (1) CVA (cerebral vascular accident) Assessment & Plan: plan for physical, occupational rec and speech therapy Status: Acute
[2017-04-12] MEDS: Insulin Lispro (humaLOG) 100 Units/ml Inj SC SCH ×2 (05:48→21:23)
[2017-04-12] MEDS: Enoxaparin 40 mg Syringe SC SCH (08:54)
[2017-04-12] MEDS: Cholecalciferol 400 Intl Units Tab PO SCH (08:55)
[2017-04-12] MEDS: Pantoprazole 40 mg EC Tab PO SCH (09:00)
[2017-04-13] MEDS: Insulin Lispro (humaLOG) 100 Units/ml Inj SC SCH ×2 (06:00→21:00)
[2017-04-13] MEDS: Pantoprazole 40 mg EC Tab PO SCH (09:15)
[2017-04-13] MEDS: Cholecalciferol 400 Intl Units Tab PO SCH (09:16)
[2017-04-13] MEDS: Enoxaparin 40 mg Syringe SC SCH (09:16)
[2017-04-13 20:09] VITALS: O2SAT 96
[2017-04-14 05:23] LABS: MEAN CELL VOLUME 89.5 fl (81.0-99.0); MEAN CORPUSCULAR HEMOGLOBIN 29.8 pg (27.0-31.0); MEAN CORPUSCULAR HGB CONC 33.3 g/dL (33.0-37.0); RED CELL DISTRIBUTION WIDTH 13.4 % (11.5-14.5)
[2017-04-14 05:27] LABS: BLOOD UREA NITROGEN 18 mg/dl (7-17); CALCIUM 11.3 mg/dL (8.4-10.2); CARBON DIOXIDE 28 mmol/L (22-30); CHLORIDE 106 mmol/L (98-107); GFR AFRICAN-AMERICAN > 60; GLUCOSE,RANDOM 94 mg/dL (65-105); POTASSIUM 4.3 MMOL/L (3.6-5.0); SODIUM 141 mmol/l (132-148)
[2017-04-14] MEDS: Insulin Lispro (humaLOG) 100 Units/ml Inj SC SCH ×2 (06:19→21:20)
[2017-04-14] MEDS: Pantoprazole 40 mg EC Tab PO SCH (09:04)
[2017-04-14] MEDS: Enoxaparin 40 mg Syringe SC SCH (09:04)
[2017-04-14] MEDS: Cholecalciferol 400 Intl Units Tab PO SCH (09:05)
[2017-04-14 09:16] VITALS: BP 122/64; PULSE 71; RESP 19; TEMP 98.3
--- NOTE | 2017-04-14 10:59 | CP.PCM.DIS ---
Provider - Provider Date of Admission: 03/26/17 19:57 Attending physician: Olga Camarillo DO Primary care physician: PMSindi Phillips Follow up PMD at [facility] for duration of physical therapy Consults: PT/OT/ speech physiatry psychiatry psychology Time Spent in preparation of Discharge (in minutes): 15 Hospital Course - Lab Results Lab Results: Most Recent Lab Values WBC 6.0 K/uL (4.8-10.8) 04/14/17 04:10 RBC 4.24 Mil/uL (3.80-5.20) 04/14/17 04:10 Hgb 12.6 g/dL (12.0-16.0) 04/14/17 04:10 Hct 38.0 % (34.0-47.0) 04/14/17 04:10 MCV 89.5 fl (81.0-99.0) 04/14/17 04:10 MCH 29.8 pg (27.0-31.0) 04/14/17 04:10 MCHC 33.3 g/dL (33.0-37.0) 04/14/17 04:10 RDW 13.4 % (11.5-14.5) 04/14/17 04:10 Plt Count 134 K/uL (130-400) 04/14/17 04:10 Sodium 141 mmol/l (132-148) 04/14/17 04:10 Potassium 4.3 MMOL/L (3.6-5.0) 04/14/17 04:10 Chloride 106 mmol/L (98-107) 04/14/17 04:10 Carbon Dioxide 28 mmol/L (22-30) 04/14/17 04:10 Anion Gap 12 (10-20) 04/14/17 04:10 BUN 18 mg/dl (7-17) H 04/14/17 04:10 Creatinine 1.0 mg/dL (0.7-1.2) 04/14/17 04:10 Est GFR ( Amer) > 60 04/14/17 04:10 Est GFR (Non-Af Amer) 56 04/14/17 04:10 POC Glucose (mg/dL) 96 mg/dL (65-110) 04/14/17 06:19 Random Glucose 94 mg/dL (65-105) 04/14/17 04:10 Calcium 11.3 mg/dL (8.4-10.2) H 04/14/17 04:10 - Hospital Course Hospital Course: 61 yo female with history of DM2, HTN, HLD and Bipolar DO was admitted in [facility] because of Acute CVA with right sided weakness involving the left [place] Radiata and Basal Ganglia. She was transferred to [facility] and admitted in acute rehab for further rehab and therapy. Cooperative well with physical therapy. at present doing well, much improved . will d/c to [facility] to continue with physical therapy to [facility] 1. S/P CVA with Right Sided Weakness continue ASA, Lipitor continue PT/OT/ST d/c to [facility] 2. DM2 BS controlled continue Januvia and Metformin 3. HTN Restarted lisinopril as renal insufficiency is resolved 4. HLD continue Lipitor 40mg PO HS 5. Renal Insufficiency- resolved back to normal baseline Restarted Metformin Restarted Lisinopril at low dose 6.Bipolar disorder on Lexapro 6.DVT prophylaxis lovenox Discharge Exam - Head Exam Head Exam: ATRAUMATIC, NORMAL INSPECTION, NORMOCEPHALIC Additional comments: obese - Eye Exam Eye Exam: EOMI, Normal appearance, PERRL Pupil Exam: NORMAL ACCOMODATION - ENT Exam ENT Exam: Mucous Membranes Moist, Normal Exam - Neck Exam Neck exam: Full Rom, Normal Inspection - Respiratory Exam Respiratory Exam: Clear to PA & Lateral, NORMAL BREATHING PATTERN. absent: Rales, Rhonchi, Wheezes - Cardiovascular Exam Cardiovascular Exam: REGULAR RHYTHM, RRR, +S1, +S2. absent: JVD - GI/Abdominal Exam GI & Abdominal Exam: Normal Bowel Sounds, Soft. absent: Distended, Guarding, Rebound, Tenderness - Rectal Exam Rectal Exam: Deferred - Extremities Exam Extremities exam: normal capillary refill, normal inspection, pedal pulses present - Back Exam Back exam: NORMAL INSPECTION - Neurological Exam Neurological exam: Alert, CN II-XII Intact, Oriented x3, Reflexes Normal Additional comments: right side weakness - Psychiatric Exam Psychiatric exam: Normal Affect, Normal Mood - Skin Skin Exam: Dry, Intact, Normal Color, Warm Discharge Plan - Follow Up Plan Condition: GOOD Disposition: TRANSF TO SNF Patient education suggested?: Yes Additional Instructions: Follow up with PMD after discharge from [facility] D/c to[facility] to continue PT
[2017-04-14] MEDS: Alum-Mag Hydrox-Simethicone Susp (30 mL) PO PRN (20:07)
== END 2017-04-14 22:10 | DRG 12 ==
PROVIDERS: ADMIT Student in an Organized Health Care Education/Training Program; ATTEND Student in an Organized Health Care Education/Training Program
PROC: F08Z3FZ Feeding/Eating Treatment using Assistive, Adaptive, Supportive or Protective Equipment (ICD-10-PCS; principal; 2017-03-26)
PROC: F08Z1FZ Dressing Techniques Treatment using Assistive, Adaptive, Supportive or Protective Equipment (ICD-10-PCS; 2017-03-26)
PROC: F08Z2FZ Grooming/Personal Hygiene Treatment using Assistive, Adaptive, Supportive or Protective Equipment (ICD-10-PCS; 2017-03-26)
PROC: F06Z6ZZ Communicative/Cognitive Integration Skills Treatment (ICD-10-PCS; 2017-03-26)
PROC: F07Z5FZ Bed Mobility Treatment using Assistive, Adaptive, Supportive or Protective Equipment (ICD-10-PCS; 2017-03-26)
PROC: F07L6FZ Therapeutic Exercise Treatment of Musculoskeletal System - Lower Back / Lower Extremity using Assistive, Adaptive, Supportive or Protective Equipment (ICD-10-PCS; 2017-03-26)
PROC: F07Z9FZ Gait Training/Functional Ambulation Treatment using Assistive, Adaptive, Supportive or Protective Equipment (ICD-10-PCS; 2017-03-26)
PROC: 3E0234Z Introduction of Serum, Toxoid and Vaccine into Muscle, Percutaneous Approach (ICD-10-PCS; 2017-03-27)
PROC: GZ56ZZZ Individual Psychotherapy, Supportive (ICD-10-PCS; 2017-03-30)
DX: I69.351 Hemiplegia and hemiparesis following cerebral infarction affecting right dominant side (principal); I10 Essential (primary) hypertension; E86.0 Dehydration; I69.354 Hemiplegia and hemiparesis following cerebral infarction affecting left non-dominant side; I69.322 Dysarthria following cerebral infarction; Z23 Encounter for immunization; E11.9 Type 2 diabetes mellitus without complications; F31.9 Bipolar disorder, unspecified; F17.210 Nicotine dependence, cigarettes, uncomplicated; I69.328 Other speech and language deficits following cerebral infarction; E78.00 Pure hypercholesterolemia, unspecified; F43.21 Adjustment disorder with depressed mood; E78.5 Hyperlipidemia, unspecified; N28.9 Disorder of kidney and ureter, unspecified